=== PATIENT | female | born 2005 | race Caucasian/White ===

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

== ENCOUNTER 2024-12-02 10:42 | Outpatient (REF) | payer MEDICAID, OTHER, SELFPAY ==
--- OUTSIDE RECORDS SUMMARY | 2024-12-02 11:23 | XMS_ITS | Encounter Summary ---
Author Organization [employer] Address [address] [facility] [address] [place] [address] Care Team Providers Care Glass Maker Name Role Phone Velvet Sharp MD Primary Care Provider [phone] Reason for Visit * Reason Onset Date Comments Appointment Request 03/27/2023 Encounter Details Date Type Department Care Team ([facility] st Contact Info) Description 03/27/2023 Telephone [facility] [address] [place] [address] Velvet Sharp MD [address] [place] [phone] Appointment Request Social History Tobacco Use Types Packs/Day Years Used Date Smoking Tobacco: Never Smokeless Tobacco: Never Alcohol Use Standard Drinks/Week Comments Never 0 (1 standard drink = 0.6 oz pur e alcohol) Comments Unknown Sex and Gender Information Value Date Recorded Sex Assigned at Female 09/01/2022 10:35 AM EDT Legal Sex Female 10:35 AM EDT Gender Identity Female 09/01/2022 10:35 AM EDT Sexual Orientation Don't know 01/21/2024 12 :10 PM EDT documented as of this encounter Miscellaneous Notes * Telephone Encounter - Rasheeda Daigle RN - 03/31/2023 4:09 PM EDT Second attempt for triage. Same message of this number is not accepting calls. Unable to LVM. Unable to send text message via [employer] gwendolyn. * Telephone Encounter - Rasheeda Daigle RN - 03/31/2023 3:38 PM EDT Call returned to patient for triage x 2. No answer , Message states the person is not accepting call at this time. Will attempt call a third time. * Telephone Encounter - Kevon Carrion - 03/27/2023 9:12 AM EDT Tc from pt requesting to R/S 03/27/23 ( discuss BC pill and pssible allergic reaction ) Please contact pt at [phone] documented in this encounter Plan of Treatment Upcoming Encounters Date Type Department Care Team ([facility] st Contact Info) Description 12/06/2024 10:00 AM EST Office Visit [facility] [address] [place] [address] Nimco Aguilar [address] [place] [address] documented as of this encounter Visit Diagnoses Not on filedocumented in this encounter Care Teams Glass Maker Relationship Specialty Start Date End Date Velvet Sharp MD [address] [place] [address] PCP - General Family Medicine 02/02/19 documented as of this encounter
--- OUTSIDE RECORDS SUMMARY | 2024-12-02 11:23 | XMS_ITS | Encounter Summary ---
Author Organization [employer] Address [address] [facility] [address] [place] [address] Care Team Providers Care Lube Worker Name Role Phone Velvet Sharp MD Primary Care Provider [phone] Reason for Visit * Reason Onset Date Comments Results 07/16/2023 Encounter Details Date Type Department Care Team ([facility] st Contact Info) Description 07/16/2023 Telephone [facility] [address] [place] [address] Velvet Sharp MD [address] [place] [phone] Results Social History Tobacco Use Types Packs/Day Years Used Date Smoking Tobacco: Never Passive Smoke Exposure: Never Smokeless Tobacco: Never Alcohol Use Standard Drinks/Week Comments Never 0 (1 standard drink = 0.6 oz pur e alcohol) Comments No Sex and Gender Information Value Date Recorded Sex Assigned at Female 09/01/2022 10:35 AM EDT Legal Sex Female 10:35 AM EDT Gender Identity Female 09/01/2022 10:35 AM EDT Sexual Orientation Don't know 01/21/2024 12 :10 PM EDT documented as of this encounter Miscellaneous Notes * Telephone Encounter - Deni Woods RN - 07/17/2023 1:25 PM EDT Please see messages below and f/u with records request: US results. Thank you. * Telephone Encounter - Deni Woods RN - 07/17/2023 1:25 PM EDT Call placed to pt and pt informed of below. Pt verbalizes understanding and agrees. * Telephone Encounter - Dinorah Ocampo CNM - 07/17/2023 8:19 AM EDT Noted. Provera sent in. Please try to get ultrasound records. Report if no bleeding by 7th day after taking last pill. Thanks! * Telephone Encounter - Deni Woods RN - 07/16/2023 3:50 PM EDT Call to pt. Requesting review of most recent lab results. RN advised, per Dinorah, Please let Michael know her bloodwork showed slight elevation of triglycerides and testosterone, everything else normal. She has a known dx of PCOS, which explains testosterone. No tx needed for triglycerides otherthan cutting back on processed foods. Has she gotten a period yet? If not, I will prescribe medication to bring it on. We'll be in touch with ultrasound results when available. Thanks! Pt verbalizes understanding of results. Per pt, has not had her period in about a year. RN advised will forward to Dinorah as plan is to prescribe Rx. RN checked [place] [facility] [place] [facility]No results. Per pt, US done in [place]. Report not in system. Advised will f/u with Dinorah and return call to pt with plan. Pt agrees. * Telephone Encounter - Quita Marshall - 07/16/2023 3:34 PM EDT Tc from patient requesting lab test results. documented in this encounter Plan of Treatment Upcoming Encounters Date Type Department Care Team (Late st Contact Info) Description 12/06/2024 10:00 AM EST Office Visit [facility] [address] [place] [address] Rikki Aguilarlucio [address] [place] [address] documented as of this encounter Visit Diagnoses Not on filedocumented in this encounter Care Teams Lube Worker Relationship Specialty Start Date End Date Velvet Sharp MD [address] [place] [address] PCP - General Family Medicine 02/02/19 documented as of this encounter
--- OUTSIDE RECORDS SUMMARY | 2024-12-02 11:23 | XMS_ITS | Encounter Summary ---
Author Organization [employer] [facility] Address [address] [facility] [address] [address] Care Team Providers Care Space Technologist Name Role Phone Velvet Sharp MD Primary Care Provider [phone] Reason for Visit * Reason Onset Date Comments Appointment 06/26/2023 Encounter Details Date Type Department Care Team (Late st Contact Info) Description 06/26/2023 Telephone [facility] [address] [place] [address] Clyde Robles Appointment Social History Tobacco Use Types Packs/Day Years [...] encounter Miscellaneous Notes * Telephone Encounter - Yadira Mccord - 06/26/2023 9:27 AM EDT Patient on waiting list since March for cleaning and exam but status of wait list states pending. Joseph listed for Fan. Patient would like to be scheduled DR documented in this encounter Plan of Treatment Upcoming Encounters Date Type Department Care Team (Late st Contact Info) Description 12/06/2024 10:00 AM EST Office Visit [facility] [address] [place] [address] Rikki Aguilarlucio [address] [place] [address] documented as of this encounter Visit Diagnoses Not on filedocumented in this encounter Care Teams Space Technologist Relationship Specialty Start Date End Date Velvet Sharp MD [address] [place] [address] PCP - General Family Medicine 02/02/19 documented as of this encounter
--- OUTSIDE RECORDS SUMMARY | 2024-12-02 11:24 | XMS_ITS | Clinical Summary ---
Author Organization [employer] Address [address] [facility] [address] [place] [address] Care Team Providers Care Produce Specialist Name Role Phone Velvet Sharp MD Primary Care Provider [phone] Allergies No known active allergies Medications magnesium oxide (Mag-Ox) 400 MG tablet Take 1 tablet by mouth in the morning. 07/31/20 22 Active magnesium oxide (Mag-Ox) 400 MG tablet Take 1 tablet by mouth in the morning. 07/31/20 22 Active ibuprofen 600 MG tablet take 1 tablet by oral route 3 times every day with food 09/15/20 22 Active clotrimazole (Lotrimin) 1 % cream Apply topically 2 times daily. 28 g 1 12/02/19 25 Active clotrimazole (Lotrimin) 1 % cream 1 applic by topical route 2 times per day 07/24/20 22 025 Discontinued(Re order (will not trigger notification to Pharmacy)) medroxyPROGEST ERone (Provera) 5 MG tablet Take 1 tablet (5 mg) by mouth in the morning for 7 days. Report if no menses by 7th day after last pill 7 tablet 07/17/20 23 025 Discontinued(Th erapy completed) ibuprofen 600 MG tablet TAKE ONE TABLET THREE TIMES DAILY WITH FOOD 90 tablet 1 09/03/20 23 025 Discontinued( erapy completed) ketoconazole (NIZOral) 2 % shampoo wash hair and rinse every 2 days 100 mL 11 09/03/20 23 025 Discontinued( erapy completed) Active Problems Problem Noted Date Diagnosed Date Gastroenteritis 01/21/2024 Assessment & Plan (01/22/2024 2:09 AM EDT): Ordered laboratories since diarrhea has not improved and I prescribed Zofran for nausea. Labs: Salmonella, Ova and parasites History of PCOS 04/21/2023 Acute ear infection, right 04/21/2023 Encounters Date Type Department Care Team Description 12/02/2024 10:00 AM EST Office Visit [facility] PED[facility] [address] [place] [address] Velvet Sharp MD Encounter for immunization (Primary Dx); Annual physical exam; Rapid weight gain; Dietary counseling; Exercise counseling; History of PCOS; Anxiety 12/02/2024 Travel 11/25/2024 Patient Outreach [facility] [address] [place] [address] Velvet Sharp MD Pre-visit Planning ([facility] unable to reach [facility]) 09/06/2024 9:00 AM EST Office Visit [facility] ADULT DENTAL [address] [place] [address] Francoise Cotto Dental calculus (Primary Dx) from Last 3 Months Immunizations Name Administration Dates Next Due BCG 2004 DTaP 01/03/2010, 6,03/04/2005,09/30,2004 HPV 9-Valent 02/02/2019,07/21/2017 Hep A, ped/adol, 2 dose 06/20/2021,07/21/2017 Hep B, Adolescent or Pediatric 03/04/2005,2003 Hep B, Unspecified 2004,2004 HiB, unspecified 03/04/2005,2004 Hib (PRP-T) 2004 IPV 12/08/2018, 6,03/04/2005,09/30,2004,2004 Influenza injectable quadriv alent IIV4 with preservative 12/08/2018 Influenza injectable quadriv alent preservative free 09/03/2023,07/31/2022,12/26/2021,09/06,08/11/2019 Influenza, seasonal, injecta ble, preservative free 12/02/2024 MMR 09/15/2008,09/12/2005 Meningococcal MCV4P ACYW-135 06/20/2021,07/21/20 17 Pfizer Covid-19 Vaccine 12+ 12/02/2024,,05/07/2021 TD (adult), 2 Lf tetanus tox oid, preservative free, adsorbed 06/16/2017 Tdap 07/21/2017 Varicella 12/08/2018,07/21/2017 Social History Tobacco Use Types Packs/Day Years Used Date Smoking Tobacco: Never Passive Smoke Exposure: Never Smokeless Tobacco: Never Tobacco Cessation:Counseling Given: Not Answered Alcohol Use Standard Drinks/Week Comments Never 0 (1 standard drink = 0.6 oz pur e alcohol) Depression Answer Date Recorded Patient Health Questionnaire-9 Score 5 12/02/2024 Patient Health Questionnaire-9 Score 5 12/02/2024 Last PHQ-9: Questionnaire Data Not on file 0 12/02/2024 Housing Stability Answer Date Recorded What is your housing situation today? I have amilcar davidson 12/02/[address] you li ve. Do you have problems with any of the following? None of the above 12/02/2024 Food Insecurity Answer Date Recorded Within the past 12 months, y ou worried that your food would run out before you got money to buy more: Never True 12/02/2024 Within the past 12 months,th e food you bought just didn't last and you didn't have enough money to get more: Never True Transportation Answer Date Recorded In the past 12 months, has l ack of transportation kept you from medical appts, meetings, work or from getting things needed for daily living? No 12/02/2024 Utilities Answer Date Recorded In the past 12 months, has t he electric, gas, oil or water company threatened to shut off services in your home? No 12/02/2024 Depression Answer Date Recorded Patient Health Questionnaire-2 Score 2 12/02/2024 Internet Access Answer Date Recorded Internet Access Q1 Yes 12/02/2024 Internet Access Q2 Not on file 12/02/2024 Comments No Sex and Gender Information Value Date Recorded Sex Assigned at Female 09/01/2022 10:35 AM EDT Legal Sex Female 10:35 AM EDT Gender Identity Female 09/01/2022 10:35 AM EDT Sexual Orientation Don't know 01/21/2024 12 :10 PM EDT Last Filed Vital Signs Vital Sign Reading Time Taken Comments Blood Pressure 127/84 12/02/2024 10:01 AM EST Pulse 87 12/02/2024 10:01 AM EST Temperature 36.9 ??C (98.4 ??F) 12/02/2024 10:[address] Respiratory Rate 20 12/02/2024 10:01 AM EST Oxygen Saturation 98% 12/02/2024 10:01 AM EST Inhaled Oxygen Concentration - - Weight 85.3 kg (188 lb) 12/02/2024 10:01 AM EST Height 165.7 cm (5' 5.25 ) 12/02/2024 10:[address] Body Mass Index 31.05 12/02/2024 10:01 AM EST Plan of Treatment Upcoming Encounters Date Type Department Care Team (Late st Contact Info) Description 12/06/2024 10:00 AM EST Office Visit [facility] ADULT DENTAL [address] [place] [address] Rikki Aguilarpreet [address] [place] [address] Health Maintenance Due Date Last Done Comments Chlamydia and Gonorrhea Screening 2004 Dental X-Ray: Full Mouth 2004 HIV Screening 2004 Family Planning (PISQ) 2019 Hepatitis C Screening 2022 Dental X-Ray: Bitewings 02/08/2025 02/08/2024, 10/14 Dental Oral Exam 03/07/2025 09/06/2024 Dental Prophylaxis 03/07/2025 09/06/2024, 0 02/08/2024, 10/14/2022 Alcohol/Substance Use Screening 12/02/2025 12/02/2024 Depression Screening 12/02/2025 12/02/2024, 12/02/19 25 SDOH Screening 12/02/2025 12/02/2024 Tobacco Screening 12/02/2025 12/02/2024 DTaP/Tdap/Td Vaccines (7 - Td or Tdap) 07/21/2027 07/21/2017, 06/16/2017, 01/03/2010, Additional history exists Zoster Vaccines (1 of 2) 2054 RSV Patients and Patients Aged 60 years or older (1 - 1-dose 75+ series) 2079 HIB Vaccines Aged Out 03/04/2005, 09/03, 2004 No longer eligible based on patient's age to complete this topic Hepatitis B Vaccines Completed 03/04/2005, 2004, 2004, Additional history exists IPV Vaccines Completed 12/08/2018, 07/04, 03/04/2005, Additional history exists HPV Vaccines Completed 02/02/2019, 07/21/2017 Hepatitis A Vaccines Completed 06/20/2021, 07/21/20 17 Meningococcal Vaccine Completed 06/20/2021, 017 COVID-19 Vaccine Completed 12/02/2024, , 05/07/2021 Influenza Vaccine Completed 12/02/2024, , 07/31/2022, Additional history exists Pneumococcal Vaccine: Pediatrics (0 to 5 Years) and At-Risk Patients (6 to 49) Years) Aged Out No longer eligible based on patient's age to complete this topic RSV under 20 months Aged Out No longe r eligible based on patient's age to complete this topic Rotavirus Vaccines Aged Out No longer eligible based on patient's age to complete this topic Procedures Procedure Name Priority Date/Time Associated Diagnosis Comments COMPREHENSIVE PERIODONTAL EVALUATION - NEW OR ESTABLISHED PATIENT Routine 09/06/2024 9:00 AM EST PERIODIC ORAL EVALUATION - ESTABLISHED PATIENT Routine 09/06/2024 9:00 AM EST ORAL HYGIENE INSTRUCTIONS Routine 2023 9:00 AM EST ADJUNCTIVE GENERAL SERVICES - PROFESSIONAL VISITS - CASE PRESENTATION, SUBSEQUENT TO DETAILED AND EXTENSIVE TREATMENT PLANNING Routine 09/06/2024 9:00 AM EST PROPHYLAXIS - ADULT Routine 09/06/2024 9 :00 AM EST BITEWINGS - 4 RADIOGRAPHIC IMAGES Routine 02/08/2024 3:00 PM EDT from Last 3 Months or Most Recently Relevant to Health Maintenance Insurance [place] [facility] AD[facility]ENT[facility] - HSN FULL (MEDICAID) Care Teams Produce Specialist Relationship Specialty Start Date End Date Velvet Sharp MD [address] [place] [id number] PCP - General Family Medicine 02/02/19
--- OUTSIDE RECORDS SUMMARY | 2024-12-02 11:24 | XMS_ITS | Encounter Summary ---
Author Organization [employer] Address [address] [facility] [address] [place] [address] Care Team Providers Care Commission Clerk Name Role Phone Velvet Sharp MD Primary Care Provider [phone] Reason for Referral * Consultation (Routine) - Authorized Specialty Diagnoses / Procedures Referred By Contac t Referred To Contact Behavioral Health Diagnoses Anxiety Velvet Sharp MD [address] [place] [address] Phone: tel: fax: Referral ID Status Reason Start Date Expiration Date Visits Requested Visits Authorized [id number] Authorized Specialty Services Required 12/02/2024 12/02/2025 1 1 Encounter Details Date Type Department Care Team ([facility] st Contact Info) Description 12/02/2024 10:00 AM EST Office Visit [facility] MED & PEDS [address] [place] [address] Velvet Sharp MD [address] [place] [address] Encounter for immunization (Primary Dx); Annual physical exam; Rapid weight gain; Dietary counseling; Exercise counseling; History of PCOS; Anxiety Social History Tobacco Use Types Packs/Day Years [...] PM EDT documented as of this encounter Last Filed Vital Signs Vital Sign Reading [...] Mass Index 31.05 12/02/2024 10:01 AM EST documented in this encounter Progress Notes * Velvet Sharp MD - 12/02/2024 10:00 AM EST Subjective Patient ID: Michael Sawant is a 19 y.o. female who presents for her PE visit. Michael is a healthy 19 y/o with PCOS here for her PE visit.Not seen in a while because she moved to [place], now back in [place]. 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 She has gained almost 20 pounds since her last visit in January 2024. Admits sometimes stress eats a lot of unhealthy snacks at night. Started going to gym with boyfriend recently and wants to lose some of the weight she has gained eating healthier. She does not have a therapist but would like to be referred as she is having anxiety. Denies high risk behaviors ,no tobacco alcohol or drug use. History provided by: Patient link trainer used: No Review of Systems Constitutional: Positive for unexpected weight change. Negative for activity change, chills and fever. Respiratory: Negative for cough, shortness of breath and wheezing. Cardiovascular: Negative for chest pain, palpitations and leg swelling. Gastrointestinal: Negative for abdominal pain and blood in stool. Endocrine: Negative for polydipsia and polyuria. Genitourinary: Negative for decreased urine volume, difficulty urinating, dysuria, hematuria and vaginal discharge. Musculoskeletal: Negative for arthralgias and gait problem. Skin: Negative for color change and rash. Neurological: Negative for dizziness and headaches. Hematological: Negative for adenopathy. Psychiatric/Behavioral: Negative for dysphoric mood, hallucinations, sleep disturbance and suicidalideas. The patient is nervous/anxious. Objective BP 127/84 (BP Location: Left arm, Patient Position: Sitting, BP Cuff Size: Adult) Pulse87 Temp 98.4 ??F (36.9 ??C) (Oral) Resp 20 Ht 5' 5.25 (1.657 m) Wt 188 lb (85.3 kg) LMP 11/04/2024 (Exact Date) SpO2 98% BMI 31.05 kg/m?? Physical Exam Vitals reviewed. Constitutional: General: She is not in acute distress. Appearance: Normal appearance. She is not ill-appearing. HENT: Head: Normocephalic. Right Ear: Tympanic membrane and ear canal normal. Left Ear: Tympanic membrane and ear canal normal. Nose: Nose normal. Mouth/Throat: Mouth: Mucous membranes are moist. Pharynx: No oropharyngeal exudate or posterior oropharyngeal erythema. Eyes: Extraocular Movements: Extraocular movements intact. Conjunctiva/sclera: Conjunctivae normal. Pupils: Pupils are equal, round, and reactive to light. Cardiovascular: Rate and Rhythm: Normal rate and regular rhythm. Pulses: Normal pulses. Heart sounds: Normal heart sounds. Pulmonary: Effort: Pulmonary effort is normal. No respiratory distress. Breath sounds: Normal breath sounds. Abdominal: Palpations: Abdomen is soft. Musculoskeletal: General: Normal range of motion. Cervical back: Normal range of motion. Skin: General: Skin is warm. Capillary Refill: Capillary refill takes less than 2 seconds. Comments: Has acanthosis nigricans on neck of neck Neurological: General: No focal deficit present. Mental Status: She is alert and oriented to person, place, and time. Psychiatric: Mood and Affect: Mood normal. Behavior: Behavior normal. Thought Content: Thought content normal. Judgment: Judgment normal. Assessment/Plan Diagnoses and all orders for this visit: Encounter for immunization Comments: She received flu and COVID shots today without complication. Orders: - COVID-19 VACCINE (Pfizer) [id number] 12 yrs + - FLU VACCINE TRIVALENT (Fluarix) 6 mo + - Hepatitis C Antibody with Reflex to HCV, RNA, Quantitative, Real-Time PCR; Future - HIV-1/2 Antigen and Antibodies, Fourth Generation, with Reflexes; Future - TSH W/Reflex to FT4; Future - Hepatic Function Panel; Future - Chlamydia/N. Gonorrhoeae RNA, TMA, Urogenitial - CBC auto differential; Future - Basic Metabolic Panel; Future - Syphilis Screen; Future Annual physical exam Comments: Patient had her annual physical today. No abnormalities on exam today. Needs Pap smear in the summer. STI screening done today. Call with results. Orders: - Hepatitis C Antibody with Reflex to HCV, RNA, Quantitative, Real-Time PCR; Future - HIV-1/2 Antigen and Antibodies, Fourth Generation, with Reflexes; Future - TSH W/Reflex to FT4; Future - Hepatic Function Panel; Future - Chlamydia/N. Gonorrhoeae RNA, TMA, Urogenitial - CBC auto differential; Future - Basic Metabolic Panel; Future Rapid weight gain Comments: Check labs today, add exercise activity apart from what she does at work. Avoid unhealthy snacks athome and eating out often. Orders: - Insulin; Future - Hemoglobin A1c; Future Dietary counseling Exercise counseling History of PCOS Comments: Recheck labs today. Interested in Nexplanon for control. Scheduled with client leader for Nexplanoninsertion advised to not miss. Partner is in [place], will use condoms in meantime. Anxiety Comments: Patient will be referred to behavioral health for intake and referral for outpatient therapy. No concerning symptoms. Follow-up with me as scheduled. Orders: - Referral to Behavioral Health; Future Other orders - clotrimazole (Lotrimin) 1 % cream; Apply topically 2 times daily. documented in this encounter Plan of Treatment Upcoming Encounters Date Type Department Care Team (Late st Contact Info) Description 12/06/2024 10:00 AM EST Office Visit [facility] ADULT DENTAL [address] [place] [address] Enrrique Aguilaranpreet [address] [place] [address] Scheduled Orders Name Type Priority Associated Diagnoses Orde r Schedule Hepatitis C Antibody with Reflex to HCV, RNA, Quantitative, Real-Time PCR Lab Routine Encounter for immunization Annual physical exam Expected: 12/02/2024, Expires: 12/02/2025 HIV-1/2 Antigen and Antibodies, Fourth Generation, with Reflexes Lab Routine Encounter for immunization Annual physical exam Expected: 12/02/2024 (Approximate), Expires: 12/02/2025 TSH W/Reflex to FT4 Lab Routine Encounter for immunization Annual physical exam Expected: 12/02/2024 (Approximate), Expires: 12/02/2025 Hepatic Function Panel Lab Routine Encounter for immunization Annual physical exam Expected: 12/02/2024 (Approximate), Expires: 12/02/2025 Chlamydia/N. Gonorrhoeae RNA, TMA, Urogenitial Microbiology Routine Encounter for immunization Annual physical exam Ordered: 12/02/2024 CBC auto differential Lab Routine Encounter for immunization Annual physical exam Expected: 12/02/2024 (Approximate), Expires: 12/02/2025 Basic Metabolic Panel Lab Routine Encounter for immunization Annual physical exam Expected: 12/02/2024 (Approximate), Expires: 12/02/2025 Insulin Lab Routine Rapid weight gain Expected: 12/02/2024 (Approximate), Expires: 12/02/2025 Hemoglobin A1c Lab Routine Rapid weight gain Expected: 12/02/2024 (Approximate), Expires: 12/02/2025 Syphilis Screen Lab Routine Encounter for immunization Expected: 12/02/2024, Expires: 12/02/2025 Scheduled Referrals Name Type Priority Associated Diagnoses Order Schedule Referral to Behavioral Health Outpatient Referral Routine Anxiety Expected: 12/02/2024 (Approximate), Expires: 12/02/2025 documented as of this encounter Visit Diagnoses Diagnosis Encounter for immunization- Primary Annual physical exam Routine general medical examination at a health care facility Rapid weight gain Dietary counseling Dietary surveillance and counseling Exercise counseling History of PCOS Anxiety Anxiety state, unspecified documented in this encounter Additional Health Concerns Assessment Noted Time PHQ-9 Depression Total Score: 5 12/02/19 25 10:32 AM EST documented as of this encounter Care Teams Commission Clerk Relationship Specialty Start Date End Date Velvet Sharp MD [address] [place] [id number] PCP - General Family Medicine 02/02/19 documented as of this encounter
--- OUTSIDE RECORDS SUMMARY | 2024-12-02 11:24 | XMS_ITS | Encounter Summary ---
Author Organization [employer] Address [address] [facility] [address] [place] [address] Care Team Providers Care Cardiology Nurse Practitioner Name Role Phone Velvet Sharp MD Primary Care Provider [phone] Reason for Visit * Reason Onset Date Comments Appointment Request 06/26/2023 Encounter Details Date Type Department Care Team ([facility] st Contact Info) Description 06/26/2023 Telephone [facility] MEDICINE [address] [place] [address] Velvet Sharp MD [address] [place] [phone] Appointment Request Social History Tobacco Use Types Packs/Day Years Used Date Smoking Tobacco: Never Passive Smoke Exposure: Never Smokeless Tobacco: Never Alcohol Use Standard Drinks/Week Comments Never 0 (1 standard drink = 0.6 oz pur e alcohol) Housing Stability Answer Date Recorded What is your housing situation today? I have amilcar davidson 08/28/[address] you li ve. Do you have problems with any of the following? None of the above 08/28/2023 Food Insecurity Answer Date Recorded Within the past 12 months, y ou worried that your food would run out before you got money to buy more: Never True 08/28/2023 Within the past 12 months,th e food you bought just didn't last and you didn't have enough money to get more: Never True Transportation Answer Date Recorded In the past 12 months, has l ack of transportation kept you from medical appts, meetings, work or from getting things needed for daily living? No 08/28/2023 Utilities Answer Date Recorded In the past 12 months, has t he electric, gas, oil or water company threatened to shut off services in your home? No 08/28/2023 Comments No Sex and Gender Information Value Date Recorded Sex Assigned at Female 09/01/2022 10:35 AM EDT Legal Sex Female 10:35 AM EDT Gender Identity Female 09/01/2022 10:35 AM EDT Sexual Orientation Don't know 01/21/2024 12 :10 PM EDT documented as of this encounter Miscellaneous Notes * Telephone Encounter - Preeti Vaca - 06/26/2023 9:09 AM EDT Tc from pt requesting stating they received a letter from office to schedule PE appt however writerdoes not see any recent letters or RECALL. Please contact for clarification at [phone] documented in this encounter Plan of Treatment Upcoming Encounters Date Type Department Care Team (Late st Contact Info) Description 12/06/2024 10:00 AM EST Office Visit [facility] [address] [place] [address] AguilarEnrrique rubalcavabertha [address] [place] [address] documented as of this encounter Visit Diagnoses Not on filedocumented in this encounter Care Teams Cardiology Nurse Practitioner Relationship Specialty Start Date End Date Velvet Sharp MD [address] [place] [address] PCP - General Family Medicine 02/02/19 documented as of this encounter
--- OUTSIDE RECORDS SUMMARY | 2024-12-02 11:24 | XMS_ITS | Encounter Summary ---
Author Organization [employer] Address [address] [facility] [address], [place] [address] Care Team Providers Care Extruder Operator Helper Name Role Phone Velvet Sharp MD Primary Care Provider [phone] Encounter Details Date Type Department Care Team (Late Contact Info) Description 07/21/2023 Orders Only [facility] MED & PED[facility] [address] [place] [address] Nisa Juarez LPN Social History Tobacco Use Types Packs/Day Years [...] PM EDT documented as of this encounter Plan of Treatment Upcoming Encounters Date Type Department Care Team (Late Contact Info) Description 12/06/2024 10:00 AM EST Office Visit [facility] ADULT DENTAL [address] [place] [address] Nimco Aguilar [address] [place] [address] documented as of this encounter Visit Diagnoses Not on filedocumented in this encounter Care Teams Extruder Operator Helper Relationship Specialty Start Date End Date Velvet Sharp MD [address] [place] [address] PCP - General Family Medicine 02/02/19 documented as of this encounter
--- OUTSIDE RECORDS SUMMARY | 2024-12-02 11:24 | XMS_ITS | Encounter Summary ---
Author Organization [employer] Address [address] [facility] [address] [address] Care Team Providers Care Financial Sales Consultant Name Role Phone Velvet Sharp MD Primary Care Provider [phone] Reason for Visit * Reason Comments Pre-visit Planning SDOH unable to reach LVM Encounter Details Date Type Department Care Team ([facility] st Contact Info) Description 11/25/2024 Patient Outreach [facility] MED & PEDS [address] [place], [place] [id number] Velvet Sharp MD [address] [place] [address] Pre-visit Planning (SDOH unable to reach LVM) Social History Tobacco Use Types Packs/Day Years [...] PM EDT documented as of this encounter Progress Notes * Sona Carrion - 11/25/2024 1:21 PM EST CC Sona Delacruz placed outbound call to patient to complete pre-visit planning. No answer at this time. Patient name and were not confirmed. CC left voicemail requesting return call. Direct contactinformation provided. documented in this encounter Plan of Treatment Upcoming Encounters Date Type Department Care Team (Late st Contact Info) Description 12/06/2024 10:00 AM EST Office Visit [facility] ADULT DENTAL [address] [place] [address] Nimco Aguilar [address] [place] [address] documented as of this encounter Visit Diagnoses Not on filedocumented in this encounter Care Teams Financial Sales Consultant Relationship Specialty Start Date End Date Velvet Sharp MD [address] [place] [address] PCP - General Family Medicine 02/02/19 documented as of this encounter
--- OUTSIDE RECORDS SUMMARY | 2024-12-02 11:24 | XMS_ITS | Encounter Summary ---
Author Organization [employer] Address [address] [facility] [address] [place] [address] Care Team Providers Care Flat Breakdown Processor Name Role Phone Velvet Sharp MD Primary Care Provider [phone] Encounter Details Date Type Department Care Team (Latest Contact Info) Description 12/02/2024 Travel Social History Tobacco Use Types Packs/Day Years [...] Description 12/06/2024 10:00 AM EST Office Visit [facility] ADULT DENTAL [address] [place] [address] Nimco Aguilar [address] [place] [address] documented as of this encounter Visit Diagnoses Not on filedocumented in this encounter Additional Health Concerns Assessment Noted Time PHQ-9 Depression Total Score: 5 12/02/19 25 10:32 AM EST documented as of this encounter Care Teams Flat Breakdown Processor Relationship Specialty Start Date End Date Velvet Sharp MD [address] [place] [address] PCP - General Family Medicine 02/02/19 documented as of this encounter
[2024-12-02 11:48] LABS: MANUAL DIFF FLAG NO
[2024-12-02 11:56] LABS: Basophils Percent Auto 0.5 % (0-2); Hematocrit 43.3 % (37.0-47.0); Hemoglobin 13.9 g/dl (12.0-16.0); Imm Gran Abs Auto 0.04 X10*3/uL (0.00-0.03); Imm Gran Pct Auto 0.5 % (0.0-0.4); Lymphocytes Absolute Auto 2.3 X10*3/uL (1.2-4.9); Lymphocytes Percent Auto 28.9 % (20-40); Mean Corpuscular HGB Conc 32.1 g/dl (31.0-35.0); Mean Corpuscular Hemoglobin 30.4 pg (27.0-33.0); Mean Corpuscular Volume 94.7 fL (80.0-98.0); Mean Platelet Volume 10.7 fL (9.4-12.3); Monocytes Absolute Auto 0.6 X10*3/uL (0.1-1.2); Monocytes Percent Auto 7.5 % (2-11); Neutrophils Percent Auto 62.6 % (45-73); Platelet Count 383 X10*3/uL (160-400); Red Blood Count 4.57 X10*6/uL (4.20-5.50); Red Cell Distribution Width 13.3 % (11.0-16.0)
[2024-12-02 12:03] LABS: Estimated Average Glucose 100 mg/dL; Hemoglobin A1C 122.2741 umol/L; Hemoglobin A1c % 5.1 % (<6.0); Total Hemoglobin (HGBA1C) 3760.6694 umol/L
[2024-12-02 12:55] LABS: HIV AB/AG Nonreactive (Nonreactive); HIV Num 1 0.05 S/CO (0.00-0.99); ~HepC Num1 0.07 S/CO (0.00-0.79); ~Hepatitis C Antibody Nonreactive (Nonreactive)
[2024-12-02 12:57] LABS: Syphilis Screen Nonreactive (Nonreactive)
[2024-12-02 13:15] LABS: Alanine Aminotransferase 41 U/L (0-31); Albumin Level 4.5 g/dL (3.5-5.0); Alkaline Phosphatase 73 U/L (39-117); Anion Gap 14 (12-20); Aspartate Amino Transferase 24 U/L (5-31); Bilirubin Direct 0.1 mg/dL (0.0-0.5); Bilirubin Total 0.4 mg/dL (0.0-1.0); Blood Urea Nitrogen 12 mg/dL (9-16); Carbon Dioxide 26 mmol/L (22-29); Chloride 106 mmol/L (96-108); Estimated Glomerular Filt Rate > 60; Glucose Random 84 mg/dL (60-115); Potassium 4.4 mmol/L (3.3-5.1); Sodium 142 mmol/L (135-145); Total Protein 8.1 g/dL (6.5-8.0)
[2024-12-02 13:25] LABS: Insulin 63 uU/mL (2-29); TSH reflex Free T4 1.56 uIU/mL (0.32-4.0)
[2024-12-02 14:37] LABS: CT PCR NOT DETECTED (Not Detect.); NG PCR NOT DETECTED (Not Detect.)
== END 2024-12-02 10:43 | disposition home or self-care (01) ==
LOC: HO.CHCLDS 10:42
PROVIDERS: Visit Provider Pediatrics
DX: Z00.00 Encounter for general adult medical examination without abnormal findings (principal); R63.5 Abnormal weight gain; Z23 Encounter for immunization
CPT/HCPCS: 36415; 80048; 80076; 83036; 83525; 84443; 85025; 86780; 86803; 87389; 87491; 87591

== ENCOUNTER 2025-07-29 13:45 | Emergency (ER) | payer MEDICAID, OTHER, SELFPAY ==
--- NOTE | 2025-07-29 13:47 | ECG_ITS ---
Test Reason : chest pain Blood Pressure : */* mmHG Vent. Rate : 88 BPM Atrial Rate : 88 BPM P-R Int : 128 ms QRS Dur : 72 ms QT Int : 340 ms P-R-T Axes : 22 16 -1 degrees QTcB Int : 411 ms Normal sinus rhythm Minimal voltage criteria for LVH, may be normal variant ( R in aVL ) Cannot rule out Anterior infarct , age undetermined Abnormal ECG When compared with ECG of 21-Aug-2021 21:57, Nonspecific T wave abnormality, worse in Anterior leads Referred By: Generic ED Physician Electronically Signed By: Adryan Hampton
[2025-07-29 13:56] VITALS: BP 130/77; PULSE 85; RESP 16; TEMP 36.2; O2SAT 98; BMI 25.8
--- NOTE | 2025-07-29 13:57 | ED.GENADULT ---
HPI - General Adult General Chief complaint: Upper Respiratory Symptoms Stated complaint: headache fever chest pain Time Seen by Provider: 07/29/25 15:14 Source: patient Mode of arrival: ambulatory Limitations: no limitations History of Present Illness ED Provider: Reina Valentin APRN HPI narrative: 20-year-old female with no known medical history presents the ER with complaints of sore throat, headaches, body aches, chest discomfort with coughing, nonproductive cough, subjective fevers and chills for 3 days. Patient denies any sick contacts. No recent travel. She denies any difficulty breathing, difficulty swallowing, shortness of breath, neck pain, neck stiffness, vomiting, diarrhea, abdominal pain. Related Data Previous Rx's ?Medication ?Instructions ?Recorded amoxicillin 500 mg-potassium 1 tab PO BID #14 tabs 04/04/23 clavulanate 125 mg tablet (Augmentin) ketorolac 10 mg tablet 10 mg PO TID PRN pain #10 tabs 04/04/23 acetaminophen 325 mg tablet 650 mg (2 x 325 mg) PO Q4H PRN 07/29/25 (Tylenol) fever or pain #30 tabs ibuprofen 600 mg tablet 600 mg PO Q8H PRN fever or pain 07/29/25 #20 tabs Allergies Allergy/AdvReac Type Severity Reaction Status Date / Time No Known Allergies (No Known Allergy Verified 07/29/25 13:58 Allergies*) Review of Systems Review of Systems: Yes all other systems are reviewed and are negative Constitutional: Constitutional: Reports no additional constitutional complaints, Reports body ache(s), Reports chills, Reports fatigue, Reports fever(s), Reports headache(s) and Denies weakness Eyes: Eyes: Reports no additional eye complaints and Denies change in vision ENT: Reports system reviewed and no additional complaints, except as documented, Denies dizziness, Reports headache(s), Denies nasal congestion, Denies nasal discharge, Denies neck pain and Reports sore throat Cardiovascular: Cardiovascular: Reports no additional cardiovascular complaints, Reports chest pain, Denies leg edema and Denies dyspnea Respiratory: Respiratory: Reports no additional respiratory complaints, Reports cough and Denies dyspnea Gastrointestinal: Gastrointestinal: Reports no additional gastrointestinal complaints, Denies abdominal pain, Denies diarrhea, Denies nausea and Denies vomiting Genitourinary: Genitourinary: Reports no additional female genitourinary complaints and Denies urinary incontinence Musculoskeletal: Musculoskeletal: Reports no additional musculoskeletal complaints, Denies back pain, Denies arthralgias, Denies joint swelling, Denies neck pain, Denies numbness and Denies tingling Integumentary/Breasts: Skin/Breast: Reports system reviewed and no additional complaints, except as docu and Denies rash Neurologic: Reports system reviewed and no additional complaints, except as documented, Denies Abnormal speech present, Denies dizziness, Reports headache(s), Denies numbness, Denies tingling and Denies weakness Endocrine: Endocrine: Reports fatigue [facility] Past Medical History Attestation statement: The following information was validated with the patient. Source: old records reviewed and nursing notes reviewed Medical History Asthma Social History Social History Alcohol intake: never Patient Tobacco Use Status: Never used Tobacco Advance Directives: No Advance Directives Information Provided: No Physical Exam ED Vital Signs: Vital Signs - 24 hr 07/29/25 13:56 07/29/25 15:28 Temperature 97.2 F Pulse Rate 85 Respiratory Rate 16 Blood Pressure 130/77 Pulse Oximetry 98 97 Oxygen Delivery Method Room Air Room Air BMI result Body Mass Index 25.8 Const General: cooperative, healthy appearing, comfortable and no acute distress Orientation/consciousness: patient oriented x3 Limitations: no limitations HENMT Head: Yes normal to inspection Ears: hearing grossly normal bilaterally and TM's normal bilaterally General nose exam: Normal external nose present Face and sinus: Yes normal facial exam Mouth: Normal oral and palatal mucosa present Throat: Yes posterior oropharynx normal, Yes tonsils normal and Yes uvula midline Eyes General: appearance normal, both eyes and all related structures Pupils: Equal, round and reactive pupils present Neck Neck: Yes normal visual inspection, Yes full ROM, Yes no lymphadenopathy and Yes no meningeal signs Chest Chest palpation & inspection: normal inspection of the chest Resp Effort & Inspection: normal respiratory effort Auscultation: clear to auscultation bilaterally Cardio Rate: regular rate Rhythm: regular rhythm Peripheral pulses: Peripheral pulses 2+ throughout GI Inspection: Yes normal to inspection Palpation (GI): Soft to palpation and nontender Auscultation: normal bowel sounds Back/Spine/Pelvis Thoracic/Lumbar Spine: thoracic and lumbar spine normal to inspection Skin General skin exam: no rashes or lesions noted Neuro General: patient oriented x3, no meningeal signs, no focal motor deficits and normal sensation to monofilament Cranial nerves: Yes Equal, round and reactive pupils present Cognition (Neuro): normal cognition Speech: No Abnormal speech present Gait exam (Neuro): Normal gait present Motor exam (neuro): 5/5 motor strength present throughout Extrem General: Yes normal to inspection, Yes no calf tenderness and Yes normal gait Course Course Course Narrative: This is a rapid medical exam performed by Rajeev Can NP: Additional HPI, ROS, PE not included below will be deferred to primary provider. Patient is a 20y/o F presenting with c/o headache, sore throat, fatigue, chest pain for a few days. Has been around others with similar sxs. Plan: strep and viral swabs Reevaluation(s) Reevaluation #1: Viral testing is negative. EKG is nonischemic. Likely viral syndrome. Recommend supportive measures at home. Reviewed worrisome signs and symptoms of when to return to the emergency room. Comfortable plan for discharge home. Medical Decision Making Medical Decision Making [facility] Narrative: 20-year-old female with no known medical history presents the ER with complaints of sore throat, headaches, body aches, chest discomfort with coughing, nonproductive cough, subjective fevers and chills for 3 days. Patient denies any sick contacts. No recent travel. She denies any difficulty breathing, difficulty swallowing, shortness of breath, neck pain, neck stiffness, vomiting, diarrhea, abdominal pain. Exam is benign Vitals are stable Will send viral testing Reviewed EKG from triage Differential Diagnosis Differential Diagnoses: The differential diagnosis associated with the presentation includes Viral syndrome Admission/Observation Consideration of admission/observation: Escalation of care including admission/observation considered Lab Data [facility] Lab Attestation statement: I reviewed the patient's lab results. Labs: Lab Results 07/29/25 Range/Units 14:07 COVID-19 (ANGELIQUE) Negative (Negative) COVID-19 Clin Com See Note Influenza Type A (GUILLAUME) Negative (Negative) Influenza Type B (GUILLAUME) Negative (Negative) Influenza A & B Note See Note S. pyogenes GrpA GUILLAUME Negative (Negative) Independent Interpretation I performed an independent interpretation of an: EKG Interpretation: I independently viewed the EKG which shows normal sinus rhythm Independent Historian Clinical information obtained from an independent historian. History obtained from or confirmed by: Friend Discharge Plan Discharge Clinical Impression: Viral infection Patient Disposition: Home, Self-Care Instructions: Viral Syndrome (ED) Additional Instructions: Testing for flu, COVID and strep are negative Your EKG is normal Take Motrin or Tylenol for pain as needed Increase fluids Rest at home Prescriptions: New ibuprofen 600 mg tablet 600 mg PO Q8H PRN (Reason: fever or pain) Qty: 20 0RF acetaminophen [Tylenol] 325 mg tablet 650 mg PO Q4H PRN (Reason: fever or pain) Qty: 30 0RF No Action ketorolac 10 mg tablet 10 mg PO TID PRN (Reason: pain) Qty: 10 0RF Rx Instructions: Do not use his medications with any NSAIDs, only Tylenol if needed amoxicillin-pot clavulanate [Augmentin] 500-125 mg tablet 1 tab PO BID Qty: 14 0RF Referrals: Velvet Sharp MD [Primary Care Provider, Medical] Stand Alone Forms: Work/School Release Print Language: Colombian
[2025-07-29 14:21] LABS: IDNOW Serial# 08D9AD1C; Strep A Nucleic Acid Negative (Negative)
[2025-07-29 14:31] LABS: COVID-19 Test Negative (Negative); IDNOW Serial# 55D5AD1C; IDNOW Serial# 58CA691E; Influenza B2 Negative (Negative)
[2025-07-29 15:28] VITALS: O2SAT 97
--- OUTSIDE RECORDS SUMMARY | 2025-07-29 15:29 | XMS_ITS | Encounter Summary ---
Author Organization [employer] Address [address] [facility] [address] [place] [address] Care Team Providers Care Life Scientists Name Role Phone Velvet Sharp MD Primary Care Provider [phone] Reason for Visit * Reason Onset Date Comments Appointment Request 03/27/2023 Encounter Details Date Type Department Care Team ([facility] st Contact Info) Description 03/27/2023 Telephone [facility] [address] [place] [address] Velvet Sharp MD [address] [place] [phone] Appointment Request Social History Tobacco Use Types [...] Female 09/01/2022 10:35 AM EDT Sexual Orientation Straight 06/13/2025 2: 44 PM EDT documented as of this encounter Miscellaneous Notes * Telephone Encounter - Rasheeda Daigle RN - 03/31/2023 4:09 PM EDT Second attempt for triage. Same message of this number is not accepting calls. Unable to LVM. Unable to send text message via [employer] gwendolyn. * Telephone Encounter - Rasheeda Daigle [...] allergic reaction ) Please contact pt at [phone] documented in this encounter Plan of Treatment Upcoming Encounters Date Type Department Care Team ([facility] st Contact Info) Description 10/19/2025 8:00 AM EST Office Visit [facility] [address] [place] [address] Francoise Cotto documented as of this encounter Visit Diagnoses Not on filedocumented in this encounter Care Teams Life Scientists Relationship Specialty Start Date End Date Velvet Sharp MD [address] [place] [address] PCP - General Family Medicine 02/02/19 documented as of this encounter
--- OUTSIDE RECORDS SUMMARY | 2025-07-29 15:30 | XMS_ITS | Encounter Summary ---
Author Organization [employer] Address [address] [facility] [address] [place] [address] Care Team Providers Care Trustee Of Estate Name Role Phone Velvet Sharp MD Primary Care Provider [phone] Encounter Details Date Type Department Care Team (Late st Contact Info) Description 07/29/2025 Orders Only GENERIC EXTERNAL DATA DEPARTMENT Provider, Generic External Data Social History Tobacco Use Types Packs/Day Years [...] Care Team (Late st Contact Info) Description 10/19/2025 8:00 AM EST Office Visit [facility] [address] [place] [address] Francoise Cotto documented as of this encounter Procedures Procedure Name Priority Date/Time Associated Diagnosis Comments INFLUENZA A B2 ID NOW (LAYNE) Routine 07/29/2025 2:07 PM EDT STREP A NUCLEIC ACID Routine 07/29/2025 2:07 PM EDT COVID-19 ID NOW (LAYNE) Routine 07/29/2025 2:07 PM EDT documented in this encounter Results * Influenza A B2 ID NOW (Layne) (07/29/2025 2:07 PM EDT) IDNOW SERIAL# [id number] [facility] Influenza A Negative Negative [facility] Influenza B2 Negative Negative [facility] Influenza A B2 Note See Note [facility] Comment:The Layne ID NOW In fluenza A B2 test is used for thequalitative detection of influenza A and B from patientswith signs and symptoms of respiratory infection.Negative results do not preclude influenza virus infectionand should not be used as the sole basis for diagnosis,treatment or other patient management decisions.There is a risk of false negative results due to thepresence of variants in the viral targets of the assay, lowlevels of virus in the specimen and co- infection withRespiratory Syncytial Virus. 07/29/2025 2:07 PM EDT 07/29/2025 2:11 PM EDT us Generic External Data Provider LAB MICROBIOLOGY - GENERAL ORDERABLES Final Result Performing Organization Address [facility] Co de Phone Number [facility] [address] [place] [phone] * COVID-19 ID NOW (LAYNE) (07/29/2025 2:07 PM EDT) IDNOW SERIAL# [id number] [facility] COVID-19 TEST Negative Negative [facility] COVID-19 NOTE See Note [facility] Comment: Results are for the identification of SARS-CoV2 RNA. TheSARS-CoV2 RNA is generally detectable in respiratory samplesduring the acute phase of infection. Positive results areindicative of the presence of SARS-CoV-2 RNA; clinicalcorrelation with patient history and other diagnosticinformation is necessary to determine patient infectionstatus. Positive results do not rule out bacterial infectionor co- infection with other viruses.Testing facilities within the [facility] and [facility] are required to report all positive results tothe appropriate public health authorities.Negative results should be treated as presumptive and, ifinconsistent with clinical signs and symptoms or necessaryfor patient management, should be tested with differentauthorized or cleared molecular tests. Negative results donot preclude SARS-CoV2 RNA infection and should not be usedas the sole basis for patient management decisions. Negativeresults should be considered in the context of a patient'srecent exposures, history and the presence of clinical signsand symptoms consistent with COVID-19.This test has been authorized by the FDA under an EmergencyUse Authorization (EUA) for use by authorized laboratories.Testing performed on the Layne ID NOW utilizing NAAT. 07/29/2025 2:07 PM EDT 07/29/2025 2:11 PM EDT us Generic External Data Provider LAB MOLECULAR TAZ GNOSTICS ORDERABLES Final Result Performing Organization Address [facility]/ZIP Co de Phone Number [facility] [address] [place] [phone] * Strep A Nucleic Acid (07/29/2025 2:07 PM EDT) IDNOW SERIAL# [id number] [facility] Strep A Nucleic Acid Negative Negative [facility] Comment:All test results mus t be correlated with clinical findings.This test has not been evaluated for monitoring treatment ofinfection.Additional follow-up testing using the culture method isrequired if the result is negative and clinical symptomspersist, or in the event of an acute rheumatic feveroutbreak. 07/29/2025 2:07 PM EDT 07/29/2025 2:11 PM EDT us Generic External Data Provider LAB MICROBIOLOGY - GENERAL ORDERABLES Final Result [facility] [address] [place] [phone] documented in this encounter Visit Diagnoses Not on filedocumented in this encounter Additional Health Concerns Assessment Noted Time PHQ-9 Depression Total Score: 5 12/02/19 25 10:32 AM EST documented as of this encounter Care Teams Trustee Of Estate Relationship Specialty Start Date End Date Velvet Sharp MD [address] [place] [address] PCP - General Family Medicine 02/02/19 documented as of this encounter
--- OUTSIDE RECORDS SUMMARY | 2025-07-29 15:30 | XMS_ITS | Clinical Summary ---
Author Organization [employer] Address [address] [facility] [address] [place] [address] Care Team Providers Care Farm Agent Name Role Phone Velvet Sharp MD Primary Care Provider [phone] Allergies No known active allergies Medications * This document contains information received from the source organization and may not represent a complete record from that organization. magnesium oxide (Mag-Ox) 400 MG tablet Take 1 tablet by mouth in the morning. 2 Active magnesium oxide (Mag-Ox) 400 MG tablet Take 1 tablet by mouth in the morning. 2 Active clotrimazole (Lotrimin) 1 % cream Apply topically 2 times daily. 28 g 1 5 Active Additional Information Patient not taking.Reported on 04/18/2025 norgestimate-et hinyl estradiol (Ortho Tri-Cyclen,Anuradha essa) 0.18/0.215/0.25 MG-35 MCG tablet Take 1 tablet by mouth Once per day. 1 Active ibuprofen (IBU) 800 MG tablet 1 tablet every 8 hours with food for 7 days. 21 tablet 5 Active Additional Information Patient not taking.Reported on 04/18/2025 chlorhexidine (Peridex) 0.12 % solution Swish 15 mL morning and night for 1 minute. Spit, do not swallow. Do not eat or drink for 30 minutes following use. 473 mL 5 Active Active Problems Problem Noted Date Diagnosed Date Anxiety 12/13/2024 History of PCOS 04/21/2023 Acne vulgaris 01/25/2021 Hirsutism 05/18/2020 Secondary amenorrhea 05/18/2020 Resolved Problems Problem Noted Date Diagnosed Date Resolved Date Gastroenteritis 01/21/2024 12/13/2024 Assessment & Plan (01/22/2024 2:09 AM EDT): Ordered laboratories since diarrhea has not improved and I prescribed Zofran for nausea. Labs: Salmonella, Ova and parasites Acute ear infection, right 04/21/2023 0 12/13/2024 Encounters Date Type Department Care Team Description 07/29/2025 Orders Only GENERIC EXTERNAL DATA DEPARTMENT Provider, Generic External Data 07/17/2025 Telephone [facility] MEDICINE [address] [place] [address] Dinorah Ocampo CNM chart prep 06/20/2025 Telephone [facility] MED & PEDS [address] [place] [address] Velvet Sharp MD u/s order 06/20/2025 Orders Only [facility] [address] [place] [address] Brayan Robles MD Pelvic pain (Primary Dx) 06/19/2025 Telephone [facility] [address] [place] [address] Brayan Robles MD Request For Order(s) 06/14/2025 11:15 AM EDT Office Visit [facility] [address] [place] [address] Brayan Robles MD Pelvic pain (Primary Dx); Other microscopic hematuria 06/14/2025 Travel 06/13/2025 Travel 06/13/2025 Telephone [facility] [address] [place] [address] Velvet Sharp MD Nurse Triage 06/12/2025 Telephone [facility] WALK-IN CENTER [address] [place] [address] Aggie Vickers MA from Last 3 Months Immunizations Immunization Administration Dates Next Due BCG 2004 DTaP [...] Q2 Not on file 12/02/2024 Comments No Intention Date Recorded No desire to become (finding) 0 01/10/2025 Sex and Gender Information Value Date Recorded Sex Assigned at Female 09/01/2022 10:35 AM EDT Legal Sex Female 10:35 AM EDT Gender Identity Female 09/01/2022 10:35 AM EDT Sexual Orientation Straight 06/13/2025 2: 44 PM EDT Last Filed Vital Signs Vital Sign Reading Time Taken Comments Blood Pressure 133/94 06/14/2025 11:06 AM EDT Pulse 88 06/14/2025 11:06 AM EDT Temperature 36.5 C (97.7 F) 06/14/2025 11:06 AM EDT Respiratory Rate 20 06/14/2025 11:06 AM EDT Oxygen Saturation 99% 06/14/2025 11:06 AM EDT Inhaled Oxygen Concentration - - Weight 88 kg (194 lb) 06/14/2025 11:06 AM EDT Height 165.7 cm (5' 5.25 ) 06/14/2025 11:06 AM E DT Body Mass Index 32.04 06/14/2025 11:06 AM EDT Plan of Treatment Upcoming Encounters Date Type Department Care Team (Late st Contact Info) Description 10/19/2025 8:00 AM EST Office Visit [facility] ADULT DENTAL [address] [place] [address] Francoise Cotto Health Maintenance Due Date Last Done Comments Meningococcal B Vaccine (1 of 2 - Standard) 2020 Pap Smear 2025 Influenza Vaccine (#1) 2025 , 09/03/2023, 07/31/2022, Additional history exists Dental Oral Exam 10/19/2025 04/18/2025, 09/06/2024 Dental Prophylaxis 10/19/2025 04/18/2025, 1 11/06/2023, 02/08/2024, Additional history exists Alcohol/Substance Use Screening 12/02/2025 12/02/2024 Chlamydia and Gonorrhea Screening 12/02/2025 12/02/2024 Depression Screening 12/02/2025 12/02/2024, 12/02/19 25 SDOH Screening 12/02/2025 12/02/2024 Family Planning (PISQ) 01/10/2026 01/10/2025 Dental X-Ray: Bitewings 04/19/2026 04/18/20 25, 02/08/2024, 10/14/2022 Disability Screening 06/13/2026 06/13/2025 Tobacco Screening 06/14/2026 06/14/2025 DTaP/Tdap/Td Vaccines (7 - Td or Tdap) 07/21/2027 07/21/2017, 06/16/2017, 01/03/2010, Additional history exists Dental X-Ray: Full Mouth 04/19/2028 04/18/2025 Zoster Vaccines (1 of 2) 2054 RSV [...] 017 COVID-19 Vaccine Completed 12/02/2024, , 05/07/2021 HIV Screening Completed 12/02/2024 Hepatitis C Screening Completed 12/02/2024 Pneumococcal Vaccine: Pediatrics (0 to 5 Years) and At-Risk Patients (6 to 49) Years Aged Out No longer eligible based on patient's age to complete this topic RSV under 20 months Aged Out No longe r eligible based on patient's age to complete this topic Rotavirus Vaccines Aged Out No longer eligible based on patient's age to complete this topic Procedures Procedure Name Priority Date/Time Associated Diagnosis Comments COVID-19 ID NOW (LAYNE) Routine 07/29/2025 2:07 PM EDT INFLUENZA A B2 ID NOW (LAYNE) Routine 07/29/2025 2:07 PM EDT STREP A NUCLEIC ACID Routine 07/29/2025 2:07 PM EDT PROPHYLAXIS - ADULT Routine 04/18/2025 8 :00 AM EDT INTRAORAL - COMPLETE SERIES OF RADIOGRAPHIC IMAGES Routine 04/18/2025 8:00 AM EDT PERIODIC ORAL EVALUATION - ESTABLISHED PATIENT Routine 04/18/2025 8:00 AM EDT CHLAMYDIA/N. GONORRHOEAE RNA, TMA, UROGENITAL Routine 12/02/2024 10:50 AM EST Encounter for immunization Annual physical exam HEPATITIS C AB W/REFL TO HCV RNA, QN, PCR Routine 12/02/2024 10:48 AM EST Encounter for immunization Annual physical exam HIV 1/2 ANTIGEN/ANTIBODY, FOURTH GENERATION W/RFL Routine 12/02/2024 10:48 AM EST Encounter for immunization Annual physical exam from Last 3 Months or Most Recently Relevant to Health Maintenance Results * Influenza A B2 ID NOW (Layne) (07/29/2025 2:07 PM EDT) IDNOW SERIAL# [id number] [facility] Influenza A Negative Negative [facility] Influenza B2 Negative Negative [facility] Influenza A B2 Note See Note [facility] Comment:The Layne ID NOW In [...] 2:07 PM EDT 07/29/2025 2:11 PM EDT Generic External Data Provider LAB MICROBIOLOGY - GENERAL ORDERABLES Final Result Performing Organization Address [facility] Co de Phone Number [facility] [address] [place] [phone] * Strep A Nucleic Acid (07/29/2025 2:07 PM EDT) IDNOW SERIAL# [id number] [facility] Strep A Nucleic Acid Negative Negative [facility] Comment:All test results mus t be correlated with clinical findings.This test has not been evaluated for monitoring treatment ofinfection.Additional follow-up testing using the culture method isrequired if the result is negative and clinical symptomspersist, or in the event of an acute rheumatic feveroutbreak. 07/29/2025 2:07 PM EDT 07/29/2025 2:11 PM EDT Generic External Data Provider LAB MICROBIOLOGY - GENERAL ORDERABLES Final Result Performing Organization Address [facility] Co de Phone Number [facility] [address] [place] [phone] * COVID-19 ID NOW (LAYNE) (07/29/2025 2:07 PM EDT) IDNOW SERIAL# [id number] [facility] COVID-19 TEST Negative Negative [facility] COVID-19 NOTE See Note [facility] Comment: Results are for the identification of SARS-CoV2 RNA. TheSARS-CoV2 RNA is generally detectable in respiratory samplesduring the acute phase of infection. Positive results areindicative of the presence of SARS-CoV-2 RNA; clinicalcorrelation with patient history and other diagnosticinformation is necessary to determine patient infectionstatus. Positive results do not rule out bacterial infectionor co- infection with other viruses.Testing facilities within the [place] and itsterritories are required to report all positive results [...] use by authorized laboratories.Testing performed on the Ya[employer] NOW utilizing NAAT. 07/29/2025 2:07 PM EDT 07/29/2025 2:11 PM EDT us Generic External Data Provider LAB MOLECULAR TAZ GNOSTICS ORDERABLES Final Result [facility] [address] [place] [phone] * Chlamydia/N. Gonorrhoeae RNA, TMA, Urogenitial (12/02/2024 10:50 AM EST) CT PCR NOT DETECTED Not Detect. [facility] Comment:A not detected test result does not exclude the possibilityof infection because test results can be affected byimproper specimen collection, concurrent antibiotic therapy,or the number of organisms in the specimen which may bebelow the sensitivity of the test. As with many diagnostictests, results from the Xpert CT/NG assay should beinterpreted in conjunction with other laboratory andclinical data available to the clinician.Xpert CT/NG performance has not been evaluated in patientsless than 14 years of age. The assay should not be used forthe evaluationof suspected sexual abuse or for other medico-legalindications. Additional testing is recommended in anycircumstance when false positive or false negative resultscould lead to adverse medical, social or psychologicalconsequences. NG PCR NOT DETECTED Not Detect. [facility] Comment:A not detected test result does not exclude the possibilityof infection because test results can be affected byimproper specimen collection, concurrent antibiotic therapy,or the number of organisms in the specimen which may bebelow the sensitivity of the test. As with many diagnostictests, results from the Xpert CT/NG assay should beinterpreted in conjunction with other laboratory andclinical data available to the clinician.Xpert CT/NG performance has not been evaluated in patientsless than 14 years of age. The assay should not be used forthe evaluationof suspected sexual abuse or for other medico-legalindications. Additional testing is recommended in anycircumstance when false positive or false negative resultscould lead to adverse medical, social or psychologicalconsequences. Swab (Vaginal Swab) 12/02/2024 10:50 AM EST 12/02/2024 11:42 AM EST Narrative [facility] - 12/02/2024 2:38 PM EST Urine Velvet Sharp MD LAB MICROBIOLOGY - GENERAL OR DERABLES Final Result Performing Organization Address [facility] Co de Phone Number [facility] [address] [place] [phone] * Hepatitis C Antibody with Reflex to HCV, RNA, Quantitative, Real-Time PCR (12/02/2024 10:48 AM EST) Hepatitis C Antibody Nonreactive Nonreactive [facility] Comment:Antibodies to HCV no t detected; does not exclude early acuteHCV infection. Blood Venous blood specimen / Unknown 12/02/2024 10:48 AM EST 12/02/2024 11:44 AM EST Velvet Sharp MD LAB BLOOD ORDERABLES Final Re sult [facility] [address] [place] [phone] [phone] * HIV-1/2 Antigen and Antibodies, Fourth Generation, with Reflexes (12/02/2024 10:48 AM EST) HIV AB/AG Nonreactive Nonreactive [facility] Comment:HIV-1 p24 Ag and/or HIV-1/HIV-2 Ab not detected.A test result that is nonreactive does not exclude thepossibility of exposure to or infection with HIV-1 and/orHIV-2. Nonreactive results in this assay for individualswith prior exposure to HIV-1 and/or HIV-2 may be due toantigen and antibody levels that are below the limit ofdetection of this assay.The [employer] HIV Ag/Ab Combo assay result andsupplemental assay results should be interpreted inconjunction with the patient's clinical presentation,history and other laboratory results. If the results areinconsistent with clinical evidence, additional testing issuggested to confirm the result. Blood Venous blood specimen / Unknown 12/02/2024 10:48 AM EST 12/02/2024 11:44 AM EST Velvet Sharp MD LAB BLOOD ORDERABLES Final Re sult Performing Organization Address City/[facility]/ZIP Co de Phone Number [facility] [address] [place] [address] [phone] from Last 3 Months or Most Recently Relevant to Health Maintenance Insurance [address] [place] [address] [address] [place] [address] [place] [id number] [facility] ADULT DENTAL - [facility] FULL (MEDICAID) [address] [place] [address] [address] [place] [address] [address] [place] [address] Care Teams Farm Agent Relationship Specialty Start Date End Date Velvet Sharp MD [address] [place] [phone] PCP - General Family Medicine 02/02/19
--- OUTSIDE RECORDS SUMMARY | 2025-07-29 15:30 | XMS_ITS | Encounter Summary ---
Author Organization [employer] Address [address] [facility] 7[address] [place] [address] Care Team Providers Care Senior Sales Assistant Name Role Phone Velvet Sharp MD Primary Care Provider Reason for Visit * Reason Onset Date Comments Appointment 06/26/2023 Encounter Details Date Type Department Care Team (Late st Contact Info) Description 06/26/2023 Telephone [facility] ADULT DENTAL [address] [place] [address] Clyde Robles Appointment Social History Tobacco Use [...] Description 10/19/2025 8:00 AM EST Office Visit [facility] ADULT DENT[facility] [address] [facility] [place] [address] Francoise Cotto documented as of this encounter Visit Diagnoses Not on filedocumented in this encounter Care Teams Senior Sales Assistant Relationship Specialty Start Date End Date Velvet Sharp MD [address] [place] [address] PCP - General Family Medicine 02/02/19 documented as of this encounter
--- OUTSIDE RECORDS SUMMARY | 2025-07-29 15:30 | XMS_ITS | Encounter Summary ---
Author Organization [employer] Address [address] [facility] [address] [place] [address] Care Team Providers Care Backend Python Developer Name Role Phone Velvet Sharp MD Primary Care Provider [phone] Encounter Details Date Type Department Care Team (Late st Contact Info) Description 07/21/2023 Orders Only [facility] MED & PEDS [address] [place], [place] [phone] Nisa Juarez LPN Social History Tobacco Use [...] Description 10/19/2025 8:00 AM EST Office Visit [facility] ADULT DENTAL [address] [place], [place] [phone] Francoise Cotto documented as of this encounter Visit Diagnoses Not on filedocumented in this encounter Care Teams Backend Python Developer Relationship Specialty Start Date End Date Velvet Sharp MD [address] [place] [address] PCP - General Family Medicine 02/02/19 documented as of this encounter
--- OUTSIDE RECORDS SUMMARY | 2025-07-29 15:30 | XMS_ITS | Encounter Summary ---
Author Organization [employer] Address [address] [facility] [address] [place] [address] Care Team Providers Care Hydrotel Operator Name Role Phone Velvet Sharp MD Primary Care Provider [phone] Reason for Visit * Reason Onset Date Comments u/s order 06/20/2025 Encounter Details Date Type Department Care Team ([facility] Contact Info) Description 06/20/2025 Telephone [facility] & PEDS [address] [place], [place] [phone] Velvet Sharp MD [address] [place] [address] u/s order Social History Tobacco Use Types Packs/Day Years [...] your housing situation today? I have amilcar stuart 12/02/[address] you li [...] encounter Miscellaneous Notes * Telephone Encounter - Jeremy Williamson - 06/20/2025 1:56 PM EDT Tc from Gina Torre at [facility] Radiology stating an order for an u/s of kidneys was placed and they need an u/s order for pelvic to be placed Contact Gina russell [phone] documented in this encounter Plan of Treatment Upcoming Encounters Date Type Department Care Team (Late st Contact Info) Description 10/19/2025 8:00 AM EST Office Visit [facility] ADULT D[facility] [address] [place] [address] Francoise Cotto documented as of this encounter Visit Diagnoses Not on filedocumented in this encounter Additional Health Concerns Assessment Noted Time PHQ-9 Depression Total Score: 5 12/02/19 25 10:32 AM EST documented as of this encounter Care Teams Hydrotel Operator Relationship Specialty Start Date End Date Velvet Sharp MD [address] [place] [address] PCP - General Family Medicine 02/02/19 documented as of this encounter
--- OUTSIDE RECORDS SUMMARY | 2025-07-29 15:30 | XMS_ITS | Encounter Summary ---
Author Organization [employer] Address [address] [place] [address] [address] [place] [address] Care Team Providers Care Finance Executive Name Role Phone Velvet Sharp MD Primary Care Provider [phone] Reason for Referral * Imaging (Routine) - Authorized Specialty Diagnoses / Procedures Referred By Contac t Referred To Contact Radiology Diagnoses Pelvic pain Procedures US Pelvis Transvaginal Brayan Robles MD [address] [place] [address] Phone: tel: fax: [address] Phone: tel: fax: Referral ID Status Reason Start Date Expiration Date V isits Requested Visits Authorized [id number] Authorized 06/20/2025 06/20/2026 1 1 * Imaging (Routine) - Authorized Specialty Diagnoses / Procedures Referred By Contac t Referred To Contact Radiology Diagnoses Pelvic pain Procedures Us Pelvis complete Brayan Robles MD [address] [place] [address] Phone: tel: fax: [address] Phone: tel: fax: Referral ID Status Reason Start Date Expiration Date V isits Requested Visits Authorized [id number] Authorized 06/20/2025 06/20/2026 1 1 Encounter Details Date Type Department Care Team (Late st Contact Info) Description 06/20/2025 Orders Only [facility] MED & PEDS [address] [place] [address] Brayan Robles MD [address] [place] [address] Pelvic pain (Primary Dx) Social History Tobacco Use Types Packs/Day Years [...] Description 10/19/2025 8:00 AM EST Office Visit [facility] ADULT DENTAL [address] [place] [address] Francoise Cotto Scheduled Orders Name Type Priority Associated Diagnoses Orde r Schedule Us Pelvis complete Imaging Routine Pelvic pain Expected: 06/20/2025, Expires: 06/20/2026 US Pelvis Transvaginal Imaging Routine Pelvic pain Expected: 06/20/2025, Expires: 06/20/2026 documented as of this encounter Visit Diagnoses Diagnosis Pelvic pain- Primary documented in this encounter Additional Health Concerns Assessment Noted Time PHQ-9 Depression Total Score: 5 12/02/19 25 10:32 AM EST documented as of this encounter Care Teams Finance Executive Relationship Specialty Start Date End Date Velvet Sharp MD [address] [place] [address] PCP - General Family Medicine 02/02/19 documented as of this encounter
--- OUTSIDE RECORDS SUMMARY | 2025-07-29 15:30 | XMS_ITS | Encounter Summary ---
Author Organization [employer] Address [address] [facility] 7[address] [place] [address] Care Team Providers Care Development Disability Specialist Name Role Phone Velvet Sharp MD Primary Care Provider [phone] Reason for Visit * Reason Onset Date Comments Results 07/16/2023 Encounter Details Date Type Department Care Team ([facility] st Contact Info) Description 07/16/2023 Telephone [facility] [address] [place] [address] Velvet Sharp MD [address] [place] [phone] Results Social History Tobacco Use Types Packs/Day [...] RN checked for US pelvis results [place] [facility] [place] [facility] [place]. Per pt, US done in [place]. Report not in system. Advised will f/u with Dinorah and return call to pt with plan. Pt agrees. * Telephone Encounter - Quita Marshall - 07/16/2023 3:34 PM EDT Tc from patient requesting lab test results. documented in this encounter Plan of Treatment Upcoming Encounters Date Type Department Care Team (Late st Contact Info) Description 10/19/2025 8:00 AM EST Office Visit [facility] ADULT DENTAL [address] [place] [address] Francoise Cotto documented as of this encounter Visit Diagnoses Not on filedocumented in this encounter Care Teams Development Disability Specialist Relationship Specialty Start Date End Date Velvet Sharp MD [address] [place] [address] PCP - General Family Medicine 02/02/19 documented as of this encounter
[2025-07-29 15:49] VITALS: BP 121/62; PULSE 78; RESP 16; TEMP 36.6; O2SAT 97
== END 2025-07-29 15:54 | disposition home or self-care (01) ==
PROVIDERS: Registered Nurse Emergency; Emergency Provider Emergency Medicine Emergency Medical Services; PCP Pediatrics
DX: B34.9 Viral infection, unspecified (principal); R51.9 Headache, unspecified; R50.9 Fever, unspecified; R07.89 Other chest pain; J02.9 Acute pharyngitis, unspecified; M79.10 Myalgia, unspecified site; Z11.52 Encounter for screening for COVID-19; Z79.899 Other long term (current) drug therapy
CPT/HCPCS: 87502; 87635; 87651; 93005; 99283; 99284

== ENCOUNTER → 2025-07-29 13:47 | Outpatient (BNV) | payer MEDICAID, SELFPAY | PROVIDERS: Emergency Provider Emergency Medicine Emergency Medical Services; PCP Pediatrics; Visit Provider Internal Medicine Cardiovascular Disease | DX: R94.31 Abnormal electrocardiogram [ECG] [EKG] (principal); R07.89 Other chest pain | CPT/HCPCS: 93010 ==

== ENCOUNTER 2025-09-14 16:31 | Outpatient (REF) | payer MEDICAID, OTHER, SELFPAY ==
--- OUTSIDE RECORDS SUMMARY | 2025-09-14 13:45 | XMS_ITS | Encounter Summary ---
Author Organization [employer] Address [address] [facility] 7t [place] [address] Care Team Providers Care Corporation Officer Name Role Phone Velvet Sharp MD Primary Care Provider [phone] Reason for Visit * Reason Comments pap Encounter Details Date Type Department Care Team (Latest Contact Info) Description 09/14/2025 1:45 PM EST Procedure Visit [facility] MED[facility]INE [address], [place] [phone] Dinorah Ocampo CNM [address] [place] [address] Cervical cancer screening (Primary Dx); Encntr screen for infections w sexl mode of transmiss; Checking subdermal contraceptive Social History Tobacco Use Types Packs/Day Years [...] is your housing situation today? I have housing today, but I am worried about losing housing in the future 09/14/[address] you li ve. Do you have problems with any of the following? None of the above 09/14/2025 Food Insecurity Answer Date Recorded Within the past 12 months, y ou worried that your food would run out before you got money to buy more: Sometimes True 2024 Within the past 12 months,th e food you bought just didn't last and you didn't have enough money to get more: Never True 09/14/2025 Transportation Answer Date Recorded In the past 12 months, has l ack of transportation kept you from medical appts, meetings, work or from getting things needed for daily living? Yes, it has kept me from medical appointments or getting medications. 09/14/2025 Utilities Answer Date Recorded In the past [...] Date Recorded No desire to become (finding) 1 11/14/2024 Sex and Gender Information Value Date Recorded Sex Assigned at Female 09/01/2022 10:35 AM EDT Legal Sex Female 10:35 AM EDT Gender Identity Female 09/01/2022 10:35 AM EDT Sexual Orientation Straight 06/13/2025 2: 44 PM EDT documented as of this encounter Last Filed Vital Signs Vital Sign Reading Time Taken Comments Blood Pressure 138/80 09/14/2025 1:45 PM EST Pulse 94 09/14/2025 1:45 PM EST Temperature 36.9 C (98.4 F) 09/14/2025 1:45 PM EST Respiratory Rate 14 09/14/2025 1:45 PM EST Oxygen Saturation 97% 09/14/2025 1:45 PM EST Inhaled Oxygen Concentration - - Weight 88.4 kg (194 lb 12.8 oz) 09/14/2025 1:45 PM EST Height - - Body Mass Index 32.17 06/14/2025 11:06 AM EDT documented in this encounter Functional Status * Over the last 2 weeks, how often have you been bothered by any of the following problems? Question Answer Date of Assessment Author Feeling nervous, anxious, or on edge 2 09/02 2:25 PM EST Aggie Vickers MA Not being able to stop or co ntrol worrying 1 09/14/2025 2:25 PM EST Aggie Vickers M A Worrying too much about diff erent things 1 09/14/2025 2:25 PM EST Aggie Vickers M A Trouble relaxing 2 09/14/2025 2:25 PM EST Aggie Verdin MA Being so restless that it is hard to sit still 0 09/14/2025 2:25 PM Aggie Johnston M A Becoming easily annoyed or irritable 1 09/02 2:25 PM Aggie Johnston MA Feeling afraid as if somethi ng awful might happen 1 09/14/2025 2:25 PM Aggie Johnston M A QUAN-7 Total Score 8 09/14/2025 2:25 PM Aggie Johnston MA documented as of this encounter Progress Notes * Dinorah Ocampo, AMMON - 09/14/2025 1:45 PM EST Subjective Patient ID: Bolivar Sawant is a 20 y.o. female who presents for pap Here for initial pap. Nexplanon inserted 12/2024. Known PCOS. Gonorrhea/Chlamydia, HIV, syphilis, Hep C neg 11/2024 1 AMAB partner for more than a year, no safety concerns. Agrees to pap based STI testing today. Largely amenorrheic with implant, notes occasional spotting. Happy with method. Not planning in the next year. Occasional vaginal itch. Review of Systems Genitourinary: Negative for dyspareunia, dysuria, frequency, genital sores, hematuria, menstrual problem, pelvic pain, urgency, vaginal bleeding, vaginal discharge and vaginal pain. No abnormal pap, no abnormal bleeding, no breast pain, no breast mass, no nipple discharge Objective BP 138/80 (BP Location: Left arm, Patient Position: Sitting, BP Cuff Size: Adult) Pulse 94 Temp98.4 ??F (36.9 ??C) (Oral) Resp 14 Wt 194 lb 12.8 oz (88.4 kg) LMP 12/17/2024 SpO2 97% BMI 32.17 kg/m?? Physical Exam Constitutional: Appearance: Normal appearance. Genitourinary: General: Normal vulva. Labia: Right: No rash, tenderness, lesion or injury. Left: No rash, tenderness, lesion or injury. Vagina: Normal. No signs of injury and foreign body. No vaginal discharge, erythema, tenderness, bleeding, lesions or prolapsed vaginal ramirez. Cervix: Normal. No cervical motion tenderness, discharge, friability, lesion, erythema, cervical bleeding or eversion. Uterus: Normal. Not enlarged and not tender. Adnexa: Right adnexa normal and left adnexa normal. Right: No mass, tenderness or fullness. Left: No mass, tenderness or fullness. Comments: Scant blood in vagina Skin: Comments: Nexplanon palpable in left arm, site well healed Neurological: Mental Status: She is alert. Psychiatric: Mood and Affect: Mood normal. Behavior: Behavior normal. Assessment/Plan Diagnoses and all orders for this visit: Cervical cancer screening - Pap Smear Initial pap today. Reviewed indications for screening and usual followup. Will contact with results. Repeat 3y if normal. Reviewed that minor cellular changes are common, and if these are noted, we will repeat pap in 1y. If yeast on pap, will treat. Encntr screen for infections w sexl mode of transmiss - STI testing add on (NG, CT, Trich) Pap based STI testing today. Will contact with results. Checking subdermal contraceptive Report prolonged, frequent or heavy bleeding. Reassured, normal to have light, infrequent or absentbleeding. Remove/replace Nexplanon by 5y from insertion date. May remove any time prior to that if desired. documented in this encounter Plan of Treatment Upcoming Encounters Date Type Department Care Team (Late st Contact Info) Description 10/19/2025 8:00 AM EST Office Visit [facility] ADULT DENTAL [address] [place] [id number] Francoise Cotto Scheduled Orders Name Type Priority Associated Diagnoses Orde r Schedule Pap Smear Pathology and Cytology Routine Cervical cancer screening Ordered: 09/14/2025 STI testing add on (NG, CT, Trich) Pathology and Cytology Routine Encntr screen for infections w sexl mode of transmiss Ordered: 09/14/2025 documented as of this encounter Visit Diagnoses Diagnosis Cervical cancer screening- Primary Screening for malignant neoplasm of the cervix Encntr screen for infections w sexl mode of transmiss Checking subdermal contraceptive Surveillance of previously prescribed implantable subdermal contraceptive documented in this encounter Additional Health Concerns Assessment Noted Time PHQ-9 Depression Total Score: 5 12/02/19 25 10:32 AM EST documented as of this encounter Care Teams Corporation Officer Relationship Specialty Start Date End Date Velvet Sharp MD [address] [place] [address] PCP - General Family Medicine 02/02/19 documented as of this encounter
--- OUTSIDE RECORDS SUMMARY | 2025-09-14 18:53 | XMS_ITS | Encounter Summary ---
Author Organization [employer] Address 75 [facility] 7t [place] [address] Care Team Providers Care Six Pack Loader Operator Name Role Phone Velvet Sharp MD Primary Care Provider [phone] Reason for Visit * Reason Onset Date Comments chart prep 09/13/2025 Encounter Details Date Type Department Care Team ([facility] st Contact Info) Description 09/13/2025 Telephone [facility] [address] [place] [address] Velvet Sharp MD [address] [place] [id number] chart prep Social History Tobacco Use Types Packs/Day Years [...] encounter Miscellaneous Notes * Telephone Encounter - Lore Woods MA - 09/13/2025 3:28 PM EST ..Chart Prep Labs: not applicable Images: not applicable Vaccines due: Covid Due and Flu Due Referrals: Not Applicable Screenings: LMP Overdue care gaps: SDOH and GAD7 documented in this encounter Plan of Treatment Upcoming Encounters Date Type Department Care Team ([facility] st Contact Info) Description 10/19/2025 8:00 AM EST Office Visit [facility] ADULT D[facility]AL [address] [place] [address] Francoise Cotto documented as of this encounter Visit Diagnoses Not on filedocumented in this encounter Additional Health Concerns Assessment Noted Time PHQ-9 Depression Total Score: 5 12/02/19 25 10:32 AM EST documented as of this encounter Care Teams Six Pack Loader Operator Relationship Specialty Start Date End Date Velvet Sharp MD [address] [place] [address] PCP - General Family Medicine 02/02/19 documented as of this encounter
--- OUTSIDE RECORDS SUMMARY | 2025-09-14 18:53 | XMS_ITS | Encounter Summary ---
Author Organization [employer] Address [address] [place] [address] [address] [place] [address] Care Team Providers Care Neuro Psych Sales Specialist Name Role Phone Velvet Sharp MD Primary Care Provider [phone] Reason for Referral * Imaging (Routine) - Authorized Specialty Diagnoses / Procedures Referred By Contac t Referred To Contact Radiology Diagnoses Pelvic pain Procedures US Pelvis Transvaginal Brayan Robles MD [address] [place] [address] Phone: tel: fax: [address] Phone: tel: fax: Referral ID Status Reason Start Date Expiration Date V isits Requested Visits Authorized [id number] Authorized 06/20/2025 06/20/2026 1 1 * Imaging (Routine) - Authorized Specialty Diagnoses / Procedures Referred By Contac t Referred To Contact Radiology Diagnoses Pelvic pain Procedures Us Pelvis complete Brayan Robles MD [address] [place] [address] Phone: tel: fax: [address] Phone: tel: fax: Referral ID Status Reason Start Date Expiration Date V isits Requested Visits Authorized [id number] Authorized 06/20/2025 06/20/2026 1 1 Encounter Details Date Type Department Care Team (Late st Contact Info) Description 06/20/2025 Orders Only [facility] P[facility] [address] [place] [address] Brayan Robles MD [address] [place] [address] Pelvic pain (Primary Dx) Social History Tobacco [...] Description 10/19/2025 8:00 AM EST Office Visit [facility] ADULT DENTAL [address] [place] [address] Francoise Cotto Scheduled Orders Name Type Priority [...] documented as of this encounter Care Teams Neuro Psych Sales Specialist Relationship Specialty Start Date End Date Velvet Sharp MD [address] [place] [address] PCP - General Family Medicine 02/02/19 documented as of this encounter
--- OUTSIDE RECORDS SUMMARY | 2025-09-14 18:53 | XMS_ITS | Encounter Summary ---
Author Organization [employer] Address [address] [facility] [address] [place] [address] Care Team Providers Care Information Management Manager Name Role Phone Velvet Sharp MD Primary Care Provider [phone] Encounter Details Date Type Department Care Team (Late st Contact Info) Description 07/21/2023 Orders Only [facility] & [facility] [address] [place], [place] [phone] Nisa Juarez LPN Social History Tobacco Use [...] [facility] ADULT D[facility] [address] [place], [place] [phone] Francoise Cotto documented as of this encounter Visit Diagnoses Not on filedocumented in this encounter Care Teams Information Management Manager Relationship Specialty Start Date End Date Velvet Sharp MD [address] [place] [address] PCP - General Family Medicine 02/02/19 documented as of this encounter
--- OUTSIDE RECORDS SUMMARY | 2025-09-14 18:53 | XMS_ITS | Encounter Summary ---
Author Organization [employer] Address [address] [facility] [address] [place] [address] Care Team Providers Care Dermatology Technician Name Role Phone Velvet Sharp MD Primary Care Provider [phone] Reason for Visit * Reason Onset Date Comments u/s order 06/20/2025 Encounter Details Date Type Department Care Team ([facility] Contact Info) Description 06/20/2025 Telephone [facility]ED[facility] [address] [place], [place] [phone] Velvet Sharp MD [address] [place] [address] u/s order Social History Tobacco Use Types [...] PM EDT Tc from Gina Torre at [facility] Radiology stating an order for an u/s of kidneys was placed and they need an u/s order for pelvic to be placed Contact Gina russell [phone] documented in this encounter Plan of Treatment Upcoming Encounters Date Type Department Care Team (Late st Contact Info) Description 10/19/2025 8:00 AM EST Office Visit [facility] ADULT D[facility] [address] [place] [address] Francoise Cotto documented as of this encounter Visit Diagnoses Not on filedocumented in this encounter Additional Health Concerns Assessment Noted Time PHQ-9 Depression Total Score: 5 12/02/19 25 10:32 AM EST documented as of this encounter Care Teams Dermatology Technician Relationship Specialty Start Date End Date Velvet Sharp MD [address] [place] [address] PCP - General Family Medicine 02/02/19 documented as of this encounter
--- OUTSIDE RECORDS SUMMARY | 2025-09-14 18:53 | XMS_ITS | Encounter Summary ---
Author Organization [employer] Address [address] [facility] 7t [place] [address] Care Team Providers Care Cryptographic Center Specialist Name Role Phone Velvet Sharp MD Primary Care Provider [phone] Reason for Visit * Reason Onset Date Comments Appointment Request 03/27/2023 Encounter Details Date Type Department Care Team ([facility] st Contact Info) Description 03/27/2023 Telephone [facility] MED[facility]INE [address] [place] [address] Velvet Sharp MD [address] [place] [address] Appointment Request Social History Tobacco Use Types [...] LVM. Unable to send text message via [employer] gwendolyn. * Telephone Encounter - Rasheeda Daigle [...] allergic reaction ) Please contact pt at [phone] documented in this encounter Plan of Treatment Upcoming Encounters Date Type Department Care Team ([facility] st Contact Info) Description 10/19/2025 8:00 AM EST Office Visit [facility] D[facility] [address] [place] [address] Francoise Cotto documented as of this encounter Visit Diagnoses Not on filedocumented in this encounter Care Teams Cryptographic Center Specialist Relationship Specialty Start Date End Date Velvet Sharp MD [address] [place] [address] PCP - General Family Medicine 02/02/19 documented as of this encounter
--- OUTSIDE RECORDS SUMMARY | 2025-09-14 18:53 | XMS_ITS | Encounter Summary ---
Author Organization [employer] Address [address] [facility] 7t [place] [address] Care Team Providers Care Director Talent Acquisition Name Role Phone Velvet Sharp MD Primary Care Provider [phone] Encounter Details Date Type Department Care Team (Latest Contact Info) Description 09/14/2025 Travel Social History Tobacco Use Types Packs/Day [...] t he electric, gas, oil or water [employer] threatened to shut off services in your [...] PM EDT documented as of this encounter Functional Status * Over the last 2 weeks, how often have you been bothered by any of the following problems? Question Answer Date of Assessment Author Feeling nervous, anxious, or on edge 2 09/02 2:25 PM Aggie Johnston MA Not being able to stop or co ntrol worrying 1 09/14/2025 2:25 PM Aggie Johnston M A Worrying too much about diff erent things 1 09/14/2025 2:25 PM Aggie Johnston M A Trouble relaxing 2 09/14/2025 2:25 [...] Johnston MA documented as of this encounter Plan of Treatment Upcoming Encounters Date Type Department Care Team (Late st Contact Info) Description 10/19/2025 8:00 AM EST Office Visit [facility] ADULT DENTAL [address] [place] [address] Francoise Cotto documented as of this encounter Visit Diagnoses Not on filedocumented in this encounter Additional Health Concerns Assessment Noted Time PHQ-9 Depression Total Score: 5 12/02/19 25 10:32 AM EST documented as of this encounter Care Teams Director Talent Acquisition Relationship Specialty Start Date End Date Velvet Sharp MD [address] [place] [address] PCP - General Family Medicine 02/02/19 documented as of this encounter
--- OUTSIDE RECORDS SUMMARY | 2025-09-14 18:53 | XMS_ITS | Encounter Summary ---
Author Organization [employer] Address [address] [facility] 7t [place] [address] Care Team Providers Care Partner Management Consultant Name Role Phone Velvet Sharp MD Primary Care Provider [phone] Reason for Visit * Reason Onset Date Comments Results 07/16/2023 Encounter Details Date Type Department Care Team ([facility] st Contact Info) Description 07/16/2023 Telephone [facility] MEDICINE [address] [place] [address] Velvet Sharp MD [address] [place] [address] Results Social History Tobacco Use Types Packs/Day [...] RN checked for US pelvis results in [facility] and [facility]No results. Per pt, US done in [place]. Report not in system. Advised will f/u [...] [facility] [address] [place] [address] Francoise Cotto documented as of this encounter Visit Diagnoses Not on filedocumented in this encounter Care Teams Partner Management Consultant Relationship Specialty Start Date End Date Velvet Sharp MD [address] [place] [address] PCP - General Family Medicine 02/02/19 documented as of this encounter
--- OUTSIDE RECORDS SUMMARY | 2025-09-14 18:53 | XMS_ITS | Clinical Summary ---
Author Organization [employer] Address 75 [facility] 7t [place] [address] Care Team Providers Care Senior Bioinformatics Specialist Name Role Phone Velvet Sharp MD Primary Care Provider [phone] Allergies No known active allergies Medications * This document contains information received from the source organization and may not represent a complete record from that organization. magnesium oxide (Mag-Ox) 400 MG tablet Take 1 tablet by mouth in the morning. 07/31/20 22 Active magnesium oxide (Mag-Ox) 400 MG tablet Take 1 tablet by mouth in the morning. 07/31/20 22 Active clotrimazole (Lotrimin) 1 % cream Apply topically 2 times daily. 28 g 1 12/02/19 25 Active Additional Information Patient not taking.Reported on 04/18/2025 ibuprofen (IBU) 800 MG tablet 1 tablet every 8 hours with food for 7 days. 21 tablet 01/18/20 25 Active Additional Information Patient not taking.Reported on 04/18/2025 chlorhexidine (Peridex) 0.12 % solution Swish 15 mL morning and night for 1 minute. Spit, do not swallow. Do not eat or drink for 30 minutes following use. 473 mL 04/18/20 25 Active norgestimate-e thinyl estradiol (Ortho Tri-Cyclen,Tri flora) 0.18/0.215/0.2 5 MG-35 MCG tablet Take 1 tablet by mouth Once per day. 02/05/20 21 025 Discontinued Active Problems Problem Noted Date Diagnosed Date [...] Encounters Date Type Department Care Team Description 09/14/2025 1:45 PM EST Procedure Visit [address] [address] Dinorah Ocampo CNM Cervical cancer screening (Primary Dx); Encntr screen for infections w sexl mode of transmiss; Checking subdermal contraceptive 09/14/2025 Travel 09/13/[address] [address] Velvet Sharp MD chart prep 07/29/2025 Orders Only GENERIC EXTERNAL DATA DEPARTMENT Provider, Generic External Data 07/17/[address] [address] Dinorah Ocampo CNM chart prep 06/20/2025 Telephone [facility] MED & PEDS [address] [place] [address] Velvet Sharp MD u/s order 06/20/2025 Orders Only [facility] MED & PEDS [address] [place] [address] Brayan Robles MD Pelvic pain (Primary Dx) 06/19/2025 Telephone [facility] MED [facility] PED[facility] [address] [place] [address] Brayan Robles MD Request For Order(s) 06/14/2025 11:15 AM EDT Office Visit [facility] MED & PEDS [address] [place] [address] Brayan Robles MD Pelvic pain (Primary Dx); Other microscopic hematuria 06/14/2025 Travel from Last 3 Months Immunizations Immunization Administration [...] free, adsorbed 06/16/2017 Tdap 07/21/2017 Varicella 12/08/2018,07/21/2017 Family History Medical History Relation Name Comments Breast cancer Neg Hx Social History Tobacco Use Types Packs/Day Years [...] 12.8 oz) 09/14/2025 1:45 PM EST Height 165.7 cm (5' 5.25 ) 06/14/2025 1 1:06 AM EDT Body Mass Index 32.17 06/14/2025 11:06 AM EDT Plan of Treatment Upcoming Encounters Date Type Department Care Team (Late st Contact Info) Description 10/19/2025 8:00 AM EST Office Visit [facility] ADULT DENTAL [address] [place] [address] Francoise Cotto Health Maintenance Due Date Last Done Comments Meningococcal B Vaccine (1 of 2 - Standard) 2020 Pap Smear 2025 COVID-19 Vaccine ( - season) 2025 12/02/2024, 2021, 05/07/2021 Influenza Vaccine (#1) 2025 , 09/03/2023, 07/31/2022, Additional history exists Dental Oral Exam 10/19/2025 04/18/2025, 09/06/2024 Dental Prophylaxis 10/19/2025 04/18/2025, 1 11/06/2023, 02/08/2024, Additional history exists Alcohol/Substance Use Screening 12/02/2025 12/02/2024 Chlamydia and Gonorrhea Screening 12/02/2025 12/02/2024 Depression Screening 12/02/2025 12/02/2024, 12/02/19 Dental X-Ray: Bitewings 04/19/2026 04/18/20 25, 02/08/2024, 10/14/2022 Disability Screening 06/13/2026 06/13/2025 Tobacco Screening 06/14/2026 06/14/2025 Family Planning (PISQ) 09/14/2026 09/14/2025 SDOH Screening 09/14/2026 09/14/2025 DTaP/Tdap/Td Vaccines (7 - Td or Tdap) [...] 07/21/20 17 Meningococcal Vaccine Completed 06/20/2021, 017 HIV Screening Completed 12/02/2024 Hepatitis C Screening [...] Date/Time Associated Diagnosis Comments COVID-19 ID NOW ([place]) Routine 07/29/2025 2:07 PM EDT INFLUENZA A [...] ([place]) (07/29/2025 2:07 PM EDT) IDNOW SERIAL# [id number] [facility] Influenza A Negative Negative [facility] Influenza B2 Negative Negative [facility] Influenza A B2 Note See Note [facility] Comment:The Layne ID NOW In [...] GENERAL ORDERABLES Final Result Performing Organization Address [facility] Co de Phone Number [facility] [address] [place] [phone] * Strep A Nucleic Acid (07/29/2025 2:07 PM EDT) IDNOW SERIAL# [id number] [facility] Strep A Nucleic Acid Negative Negative [facility] Comment:All test results mus t [...] GENERAL ORDERABLES Final Result Performing Organization Address [facility] Co de Phone Number [facility] [address] [place] [phone] * COVID-19 ID NOW (LAYNE) (07/29/2025 2:07 PM EDT) IDNOW SERIAL# [id number] [facility] COVID-19 TEST Negative Negative [facility] COVID-19 NOTE See Note [facility] Comment: Results are for the identification of SARS-CoV2 RNA. TheSARS-CoV2 RNA is generally detectable in respiratory samplesduring the acute phase of infection. Positive results areindicative of the presence of SARS-CoV-2 RNA; clinicalcorrelation with patient history and other diagnosticinformation is necessary to determine patient infectionstatus. Positive results do not rule out bacterial infectionor co- infection with other viruses.Testing facilities within the [facility] and itsterritories are required to report all [...] use by authorized laboratories.Testing performed on the [employer] mobile [employer] ID NOW utilizing NAAT. 07/29/2025 2:07 PM EDT 07/29/2025 2:11 PM EDT us Generic External Data Provider LAB MOLECULAR TAZ GNOSTICS ORDERABLES Final Result [facility] [address] [place] [address] [phone] * Chlamydia/N. Gonorrhoeae RNA, TMA, Urogenitial (12/02/2024 10:50 AM EST) CT PCR NOT DETECTED Not Detect. [facility] Comment:A not detected test result [...] psychologicalconsequences. NG PCR NOT DETECTED Not Detect. [facility] Comment:A not detected test result [...] AM EST 12/02/2024 11:42 AM EST Narrative [facility] - 12/02/2024 2:38 PM EST Urine us Velvet Sharp MD LAB MICROBIOLOGY - GENERAL OR DERABLES Final Result [facility] [address] [place] [phone] [phone] * Hepatitis C Antibody with Reflex to HCV, RNA, Quantitative, Real-Time PCR (12/02/2024 10:48 AM EST) Hepatitis C Antibody Nonreactive Nonreactive [facility] Comment:Antibodies to HCV no t detected; does not exclude early acuteHCV infection. Blood Venous blood specimen / Unknown 12/02/2024 10:48 AM EST 12/02/2024 11:44 AM EST Velvet Sharp MD LAB BLOOD ORDERABLES Final Re sult Performing Organization Address [facility]/ZIP Co de Phone Number [facility] [address] [place] [phone] * HIV-1/2 Antigen and Antibodies, Fourth Generation, with Reflexes (12/02/2024 10:48 AM EST) [facility] HIV AB/AG Nonreactive Nonreactive [facility] Comment:HIV-1 p24 Ag and/or HIV-1/HIV-2 Ab not detected.A test result that is nonreactive does not exclude thepossibility of exposure to or infection with HIV-1 and/orHIV-2. Nonreactive results in this assay for individualswith prior exposure to HIV-1 and/or HIV-2 may be due toantigen and antibody levels that are below the limit ofdetection of this assay.The Breadcrumbtracking HIV Ag/Ab Combo assay result andsupplemental assay results should be interpreted inconjunction with the patient's clinical presentation,history and other laboratory results. If the results areinconsistent with clinical evidence, additional testing issuggested to confirm the result. Blood Venous blood specimen / Unknown 12/02/2024 10:48 AM EST 12/02/2024 11:44 AM EST us Velvet Sharp MD LAB BLOOD ORDERABLES Final Re sult Performing Organization Address City/[facility]/ZIP Co de Phone Number [facility] [address] [place] [phone] [phone] from Last 3 Months or Most Recently Relevant to Health Maintenance Insurance [address] [place] [phone] [employer] [address] [place] [address] [place] ADULT DENTAL - [place]SN FULL (MEDICAID) [address] [place] [address] Care Teams Senior Bioinformatics Specialist Relationship Specialty Start Date End Date Velvet Sharp MD [address] [place] [phone] PCP - General Family Medicine 02/02/19
--- OUTSIDE RECORDS SUMMARY | 2025-09-14 18:53 | XMS_ITS | Encounter Summary ---
Author Organization [employer] Address 75 [facility] 7t [place] [address] Care Team Providers Care Mold Burner Name Role Phone Velvet Sharp MD Primary Care Provider [phone] Reason for Visit * Reason Onset Date Comments Appointment 06/26/2023 Encounter Details Date Type Department Care Team (Late st Contact Info) Description 06/26/2023 Telephone [facility] ADULT DENTAL [address] [place] [address] Clyde Robles Appointment Social History Tobacco Use [...] 8:00 AM EST Office Visit [facility] ADULT DENTAL [address] [place] [address] Francoise Cotto documented as of this encounter Visit Diagnoses Not on filedocumented in this encounter Care Teams Mold Burner Relationship Specialty Start Date End Date Velvet Sharp MD [address] [place] [address] PCP - General Family Medicine 02/02/19 documented as of this encounter
[2025-09-16 19:08] LABS: C. trachomatis RNA TMA NOT DETECTED (NOT DETECTED); N. gonorrhoeae RNA TMA NOT DETECTED (NOT DETECTED)
[2025-09-27 11:39] LABS: Trichomonas (NAAT) NOT DETECTED
== END 2025-09-14 16:32 | disposition home or self-care (01) ==
LOC: HO.HHCLNP 16:31
PROVIDERS: Visit Provider Advanced Practice Midwife
DX: Z12.4 Encounter for screening for malignant neoplasm of cervix (principal); Z20.2 Contact with and (suspected) exposure to infections with a predominantly sexual mode of transmission; Z11.51 Encounter for screening for human papillomavirus (HPV)
CPT/HCPCS: 87491; 87591; 87661; 88175

== ENCOUNTER 2025-09-25 14:12 | Outpatient (REF) | payer MEDICAID, OTHER, SELFPAY ==
--- NOTE | ~2025-09-25 | US_ITS ---
EXAMINATION: US PELVIS, COMPLETE CLINICAL INFORMATION: Pelvic and peritoneal pain COMPARISON: None TECHNIQUE: Transabdominal and transvaginal imaging was performed. FINDINGS: LMP: 12/11/2024 Uterus is anteverted , measuring 6.1 x 2.9 x 4.4 cm. No focal uterine lesion. Endometrial thickness 0.3 cm. Right ovary measures 2.5 x 1.6 x 2 cm. Volume 4.2 mL. Vascular flow is seen. Left ovary measures 3.3 x 2 x 2.2 cm. Volume 7.6 mL. Vascular flow is seen. No free fluid in the cul-de-sac. US/US pelvic and transvaginal IMPRESSION: Unremarkable pelvic ultrasound. Electronically signed by: Denny Estrada MD 09/26/2025 01:53 PM EST
--- OUTSIDE RECORDS SUMMARY | 2025-09-25 19:09 | XMS_ITS | Encounter Summary ---
Author Organization [employer] Address [address] [facility] [address] [place] [address] Care Team Providers Care Cruise Director Name Role Phone Velvet Sharp MD Primary Care Provider [phone] Encounter Details Date Type Department Care Team (Late st Contact Info) Description 07/21/2023 Orders Only [facility] MED & PEDS [address] [place], [place] [phone] Nisa Juarez LPN Social History Tobacco Use [...] [facility] [address] [place] [address] Francoise Cotto documented as of this encounter Visit Diagnoses Not on filedocumented in this encounter Care Teams Cruise Director Relationship Specialty Start Date End Date Velvet Sharp MD [address] [place] [address] PCP - General Family Medicine 02/02/19 documented as of this encounter
--- OUTSIDE RECORDS SUMMARY | 2025-09-25 19:09 | XMS_ITS | Encounter Summary ---
Author Organization [employer] Address [address] [facility] [address] [place] [address] Care Team Providers Care Magnetic Tape Composer Operator Name Role Phone Velvet Sharp MD Primary Care Provider [phone] Reason for Referral * Imaging (Routine) - Authorized Specialty Diagnoses / Procedures Referred By Contac t Referred To Contact Radiology Diagnoses Pelvic pain Procedures US Pelvis Transvaginal Brayan Robles MD [address] [place] [address] Phone: tel: fax: [address] [phone] Phone: tel: fax: Referral ID Status Reason Start Date Expiration Date V isits Requested Visits Authorized [id number] Authorized 06/20/2025 06/20/2026 1 1 * Imaging (Routine) - Authorized Specialty Diagnoses / Procedures Referred By Contac t Referred To Contact Radiology Diagnoses Pelvic pain Procedures Us Pelvis complete Brayan Robles MD [address] [place] [address] Phone: tel: fax: [address] [phone] Phone: tel: fax: Referral ID Status Reason Start Date Expiration Date V isits Requested Visits Authorized [id number] Authorized 06/20/2025 06/20/2026 1 1 Encounter Details Date Type Department Care Team ([facility] st Contact Info) Description 06/20/2025 Orders Only [facility] MED & PEDS [address] [place] [address] Brayan Robles MD [address] [place] [address] Pelvic pain (Primary Dx) Social History Tobacco [...] Upcoming Encounters Date Type Department Care Team ([facility] st Contact Info) Description 10/19/2025 8:00 AM EST Office Visit [facility] ADULT DENTAL [address] [place] [address] Francoise Cotto Scheduled Orders Name Type Priority [...] documented as of this encounter Care Teams Magnetic Tape Composer Operator Relationship Specialty Start Date End Date Velvet Sharp MD [address] [place] [address] PCP - General Family Medicine 02/02/19 documented as of this encounter
--- OUTSIDE RECORDS SUMMARY | 2025-09-25 19:09 | XMS_ITS | Encounter Summary ---
Author Organization [email or web address] Address [address] [facility] 7t [place] [address] Care Team Providers Care Cub Reporter Name Role Phone Velvet Sharp MD Primary Care Provider [phone] Reason for Visit * Reason Onset Date Comments Results 07/16/2023 Encounter Details Date Type Department Care Team ([facility] st Contact Info) Description 07/16/2023 Telephone [facility] MEDICINE [address] [place] [address] Velvet Sharp MD [address] [place] [phone] Results Social History Tobacco Use Types Packs/Day [...] RN checked for US pelvis results in [facility] and [facility].No results. Per pt, US done in [place]. Report not in system. Advised will f/u with Dinorah and return call to pt with plan. Pt agrees. * Telephone Encounter - Quita Marshall - 07/16/2023 3:34 PM EDT Tc from patient requesting lab test results. documented in this encounter Plan of Treatment Upcoming Encounters Date Type Department Care Team (Late st Contact Info) Description 10/19/2025 8:00 AM EST Office Visit [facility] ADULT DENTAL [address] [place] [address] Francoise Cotto documented as of this encounter Visit Diagnoses Not on filedocumented in this encounter Care Teams Cub Reporter Relationship Specialty Start Date End Date Velvet Sharp MD [address] [place] [address] PCP - General Family Medicine 02/02/19 documented as of this encounter
--- OUTSIDE RECORDS SUMMARY | 2025-09-25 19:09 | XMS_ITS | Encounter Summary ---
Author Organization [employer] Address [address] [facility] [address] [place] [address] Care Team Providers Care Financial Systems Director Name Role Phone Velvet Sharp MD Primary Care Provider [phone] Reason for Visit * Reason Onset Date Comments Appointment Request 03/27/2023 Encounter Details Date Type Department Care Team ([facility] st Contact Info) Description 03/27/[address] [facility] MEDICINE [address] [place] [address] Velvet Sharp MD [address] [place] [phone] Appointment Request Social History Tobacco Use Types [...] LVM. Unable to send text message via [employer] gwendolyn. * Telephone Encounter - Rasheeda Daigle [...] allergic reaction ) Please contact pt at [phone] documented in this encounter Plan of Treatment Upcoming Encounters Date Type Department Care Team ([facility] st Contact Info) Description 10/19/2025 8:00 AM EST Office Visit [facility] ADULT DENTAL [address] [place] [address] Francoise Cotto documented as of this encounter Visit Diagnoses Not on filedocumented in this encounter Care Teams Financial Systems Director Relationship Specialty Start Date End Date Velvet Sharp MD [address] [place] [address] PCP - General Family Medicine 02/02/19 documented as of this encounter
--- OUTSIDE RECORDS SUMMARY | 2025-09-25 19:09 | XMS_ITS | Encounter Summary ---
Author Organization [employer] Address [address] [facility] 7t [place] [address] Care Team Providers Care Director Channel Name Role Phone Velvet Sharp MD Primary Care Provider [phone] Encounter Details Date Type Department Care Team (Late st Contact Info) Description 09/14/2025 Orders Only [facility] MEDICINE [address] [place], [place] [phone] Dinorah Ocampo CN [address] [place] [address] Social History Tobacco Use Types Packs/Day Years [...] A Trouble relaxing 2 09/14/2025 2:25 PM Aggie Bo [place] Being so restless that it is [...] Description 10/19/2025 8:00 AM EST Office Visit [facility] ADULT DENTAL [address] [facility] [place] [facility] [place] [address] Francoise Cotto documented as of this encounter Procedures Procedure Name Priority Date/Time Associated Diagnosis Comments OTHER REF TEST - MISC Routine 09/14/2025 2:20 PM EST documented in this encounter Results * Other Reference Test - Misc (09/14/2025 2:20 PM EST) Other Ref Test Misc SEE NOTE [facility] Comment:SEE SCANNED REPORT I N EMR 09/14/2025 2:20 PM EST 09/15/2025 7:54 AM EST Narrative [facility] - 09/25/2025 4:11 PM EST Chlamydia/N. gonorrhoeae and T. vaginalis RNA, Qualitative, TMA REF [id number] us Dinorah TOLBERTM LAB BLOOD ORDERABLES Smiley l Result [facility] [address] [place] [address] [phone] documented in this encounter Visit Diagnoses Not on filedocumented in this encounter Additional Health Concerns Assessment Noted Time PHQ-9 Depression Total Score: 5 12/02/19 25 10:32 AM EST documented as of this encounter Care Teams Director Channel Relationship Specialty Start Date End Date Velvet Sharp MD [address] [place] [address] PCP - General Family Medicine 02/02/19 documented as of this encounter
--- OUTSIDE RECORDS SUMMARY | 2025-09-25 19:09 | XMS_ITS | Encounter Summary ---
Author Organization [employer] Address 75 [facility] 7t [place] [address] Care Team Providers Care Ice Cream Scooper Name Role Phone Velvet Sharp MD Primary Care Provider [phone] Reason for Visit * Reason Onset Date Comments Appointment 06/26/2023 Encounter Details Date Type Department Care Team (Late st Contact Info) Description 06/26/2023 Telephone [facility] ADULT DENTAL [address] [place] [address] Clyde Robles Appointment Social History Tobacco Use [...] Description 10/19/2025 8:00 AM EST Office Visit [facility] ADULT DENTAL [address] [place] [address] Francoise Cotto documented as of this encounter Visit Diagnoses Not on filedocumented in this encounter Care Teams Ice Cream Scooper Relationship Specialty Start Date End Date Velvet Sharp MD [address] [place] [address] PCP - General Family Medicine 02/02/19 documented as of this encounter
--- OUTSIDE RECORDS SUMMARY | 2025-09-25 19:09 | XMS_ITS | Encounter Summary ---
Author Organization [employer] Address 75 [facility] [address] [place] [address] Care Team Providers Care Scientific Advisor Name Role Phone Velvet Sharp MD Primary Care Provider [phone] Reason for Visit * Reason Onset Date Comments u/s order 06/20/2025 Encounter Details Date Type Department Care Team ([facility] Contact Info) Description 06/20/2025 Telephone [facility] CHC MED & PEDS [address] [place], [place] [phone] Velvet Sharp MD [address] [place] [address] u/s order Social History Tobacco Use Types [...] PM EDT Tc from Gina Torre at [facility] Radiology stating an order for an u/s of kidneys was placed and they need an u/s order for pelvic to be placed Contact Gina russell [phone] documented in this encounter Plan of Treatment Upcoming Encounters Date Type Department Care Team (Late st Contact Info) Description 10/19/2025 8:00 AM EST Office Visit [facility] ADULT DENTAL [address] [place] [address] Francoise Cotto documented as of this encounter Visit Diagnoses Not on filedocumented in this encounter Additional Health Concerns Assessment Noted Time PHQ-9 Depression Total Score: 5 12/02/19 25 10:32 AM EST documented as of this encounter Care Teams Scientific Advisor Relationship Specialty Start Date End Date Velvet Sharp MD [address] [place] [address] PCP - General Family Medicine 02/02/19 documented as of this encounter
--- OUTSIDE RECORDS SUMMARY | 2025-09-25 19:09 | XMS_ITS | Encounter Summary ---
Author Organization [employer] Address [address] [facility] 7t [place] [address] Care Team Providers Care Dialysis Technician Name Role Phone Velvet Sharp MD Primary Care Provider [phone] Reason for Visit * Reason Onset Date Comments Lab Orders 09/20/2025 Encounter Details Date Type Department Care Team ([facility] st Contact Info) Description 09/20/2025 Results Follow-Up [facility] MEDICINE [address] [place] [address] Dinorah Ocampo CNM [address] [place] [address] Pap Smear, STI testing add on (NG, CT, Trich) Social History Tobacco Use Types Packs/Day Years [...] encounter Miscellaneous Notes * Telephone Encounter - Dorinda Haines RN - 09/25/2025 1:29 PM EST Telephone call placed to [facility] Cytology lab. They stated very odd that trichomonastesting didn't come back with it but will have their staff member from [employer] look into it ([employer] ran it) and will call me back. Gave my direct ext for returned call. * Telephone Encounter - Dorinda Haines RN - 09/25/2025 1:24 PM EST ----- Message from Dinorah Ocampo sent at 09/25/2025 11:34 AM EST ----- One more pap with trichomonas testing not resulted, but Gonorrhea/Chlamydia resulted. Could you please followup with lab? Thanks! ----- Message ----- From: Netta, Lab Results In Sent: 09/16/2025 7:09 PM EST To: Dinorah Ocampo CNM * Result Encounter Note - Dinorah Ocampo CNM - 09/25/2025 11:34 AM EST One more pap with trichomonas testing not resulted, but Gonorrhea/Chlamydia resulted. Could you please followup with lab? Thanks! documented in this encounter Plan of Treatment Upcoming Encounters Date Type Department Care Team (Late st Contact Info) Description 10/19/2025 8:00 AM EST Office Visit [facility] ADULT DENTAL [address] [place] [address] Francoise Cotto documented as of this encounter Visit Diagnoses Not on filedocumented in this encounter Additional Health Concerns Assessment Noted Time PHQ-9 Depression Total Score: 5 12/02/19 25 10:32 AM EST documented as of this encounter Care Teams Dialysis Technician Relationship Specialty Start Date End Date Velvet Sharp MD [address] [place] [address] PCP - General Family Medicine 02/02/19 documented as of this encounter
--- OUTSIDE RECORDS SUMMARY | 2025-09-25 19:10 | XMS_ITS | Clinical Summary ---
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 Velvet Sharp MD Primary Care Provider [phone] Allergies No known active allergies Medications * [...] Encounters Date Type Department Care Team Description 09/20/2025 Results Follow-Up [address] [address] Dinorah Gould CNM Pap Smear, STI testing add on (NG, CT, Trich) 09/14/2025 1:45 PM EST Procedure Visit [address] [address] Dinorah Gould CNM Cervical cancer screening (Primary Dx); Encntr screen for infections w sexl mode of transmiss; Checking subdermal contraceptive 09/14/2025 Orders Only [address] [address] Dinorah Gould CNM 09/14/2025 Travel 09/13/[address] [address] Velvet Sharp MD chart prep 07/29/2025 Orders Only GENERIC EXTERNAL DATA DEPARTMENT Provider, Generic External Data 07/17/[address] [address] Dinorah Gould CNM chart prep from Last 3 Months Immunizations Immunization Administration [...] [facility] [address] [place] [address] Francoise Cotto Health Maintenance Due Date Last Done Comments Meningococcal B Vaccine (1 of 2 - Standard) 2020 COVID-19 Vaccine ( season) 2025 12/02/2024, 2021, 05/07/2021 Influenza Vaccine (#1) 2025 , 09/03/2023, 07/31/2022, Additional history exists Dental Oral Exam 10/19/2025 04/18/2025, 09/06/2024 Dental Prophylaxis 10/19/2025 04/18/2025, 1 11/06/2023, 02/08/2024, Additional history exists Alcohol/Substance Use Screening 12/02/2025 12/02/2024 Depression Screening 12/02/2025 12/02/2024, 12/02/19 Dental X-Ray: Bitewings 04/19/2026 04/18/20, 02/08/2024, 10/14/2022 Disability Screening 06/13/2026 06/13/2025 Tobacco Screening 06/14/2026 06/14/2025 Chlamydia and Gonorrhea Screening 09/14/2026 09/14/2025, 12/02/2024 Family Planning (PISQ) 09/14/2026 09/14/2025 SDOH Screening 09/14/2026 09/14/2025 DTaP/Tdap/Td Vaccines (7 - Td or Tdap) 07/21/2027 07/21/2017, 06/16/2017, 01/03/2010, Additional history exists Dental X-Ray: Full Mouth 04/19/2028 04/18/2025 Pap Smear 09/14/2028 09/14/2025 Zoster Vaccines (1 of 2) 2054 RSV [...] 07/21/2017 Hepatitis A Vaccines Completed 06/20/2021, 07/21/20 Meningococcal Vaccine Completed 06/20/2021, 017 HIV Screening [...] Procedure Name Priority Date/Time Associated Diagnosis Comments CHLAMYDIA/N. GONORRHOEAE AND T. VAGINALIS RNA, QUAL,TMA Routine 09/14/2025 2:20 PM EST Encntr screen for infections w sexl mode of transmiss PAP SMEAR Routine 09/14/2025 2:20 PM EST Cervical cancer screening OTHER REF TEST - MISC Routine 09/14/2025 2:20 PM EST COVID-19 ID NOW ([employer]) Routine 07/29/2025 2:07 PM EDT INFLUENZA A B2 ID NOW (LAYNE) Routine 07/29/2025 2:07 PM EDT STREP A NUCLEIC ACID Routine 07/29/2025 2:07 PM EDT PROPHYLAXIS - ADULT Routine 04/18/2025 8 :00 AM EDT INTRAORAL - COMPLETE SERIES OF RADIOGRAPHIC IMAGES Routine 04/18/2025 8:00 AM EDT PERIODIC ORAL EVALUATION - ESTABLISHED PATIENT Routine 04/18/2025 8:00 AM EDT HEPATITIS C AB W/REFL TO HCV RNA, QN, PCR Routine 12/02/2024 10:48 AM EST Encounter for immunization Annual physical exam HIV 1/2 ANTIGEN/ANTIBODY, FOURTH GENERATION W/RFL Routine 12/02/2024 10:48 AM EST Encounter for immunization Annual physical exam from Last 3 Months or Most Recently Relevant to Health Maintenance Results * STI testing add on (NG, CT, Trich) (09/14/2025 2:20 PM EST) Trichomonas (NAAT) TNP [facility] Comment:SEE 1113;C1020 FOR R ESULTS CTNG Ref Lab NOT DETECTED NOT DETECTED [facility] NG Ref Lab NOT DETECTED NOT DETECTED [facility] ThinPrep vial Cervix uteri structure / Unknown 09/14/2025 2:20 PM EST 09/15/2025 7:54 AM EST [facility] - 09/25/2025 4:11 PM EST Collection Date: [id number] by: EDDIE Tony: Cervix Dinorah Gould [facility] CYTOLOGY ORDERABLES F inal Result Performing Organization Address [facility]/ZIP Co de Phone Number [facility] [address] [place] [phone] * Other Reference Test - Misc (09/14/2025 2:20 PM EST) Other Ref Test Misc SEE NOTE [facility] Comment:SEE SCANNED REPORT I N EMR 09/14/2025 2:20 PM EST 09/15/2025 7:54 AM EST [facility] - 09/25/2025 4:11 PM EST Chlamydia/N. gonorrhoeae and T. vaginalis RNA, Qualitative, TMA REF [id number] Dinorah Gould [facility] BLOOD ORDERABLES Smiley l Result Performing Organization Address [facility] Co de Phone Number [facility] [address] [place] [phone] * Pap Smear (09/14/2025 2:20 PM EST) Swab Cervix uteri structure / Unknown 09/14/2025 2:20 PM EST 09/15/2025 7:54 AM EST [facility] - 09/20/2025 11:00 AM EST ----- ------- Name: Michael Bermeo Age/Sex: 20/F : 2005 Unit#: [id number] Attend Dr: DINORAH GOULD CNM Re09/14/25 Status: DEP [facility] Disch: ----- ------- SPEC : [id number] RECD: 09/15/25 STATUS: HEAVEN VELASCO NUM: [id number] LES: 09/14/[address] [facility] [address]: DINORAH GOULD CNM ENTERED: 09/15/25 SP TYPE: Pap Smr OT DR: ORDERED: Pap Smear Interpretation Satisfactory for evaluation. Negative for intraepithelial lesion or malignancy. No endocervical cells seen. Clinical Information LMP: Implantable control Previous PAP test: First Pap Other history: Cervical cancer screening Material Received ThinPrep-Vaginal/Cervical PAP Disclaimer As of August 24, 2024, the technical services to include automated prescreening performed by the ThinPrep Imaging System, PAP screening and HPV testing will be performed at [facility] (CLIA #[id number]), [address] [place] [address]. Testing for HPV was performed using the Rosanne AYDEN [id number] system. The presence of HPV in the female genital tract is associated with a number of diseases, including cervical carcinoma. The HPV DNA high risk pool tests for HPV 31, 33, 35, 39, 45, 51, 52, 56, 58, 59, 66 and 68. The testing for HPV 16 and 18 genotypes has also been performed. A positive result indicates detection of nucleic acid sequences from one or more subtypes, whereas a negative result indicates such sequences were not detected. All professional services are performed by [facility] ([address] [place] [id number]; ; CLIA #[id number]). The PAP Test is a screening procedure with the inherent possibility of both false negative and false positive results. Results should be interpreted in the context of historic and current clinical findings. Reliability of the PAP Test is enhanced by performing the test on a regular repetitive basis. ----- ------- Signed (signature on file) FER Salas (ASCP) 09/20/25 1100 ----- ------- END OF REPORT us Dinorah Gould [facility] CYTOLOGY ORDERABLES F inal Result [facility] [address] [place] [phone] * Influenza A B2 ID NOW (Layne) (07/29/2025 2:07 PM EDT) IDNOW SERIAL# [id number] [facility] Influenza A Negative Negative [facility] Influenza B2 Negative Negative [facility] Influenza A B2 Note See Note [facility] Comment:The Layne ID NOW In [...] GENERAL ORDERABLES Final Result Performing Organization Address [facility] de Phone Number [facility] [address] [place] [phone] * Strep A Nucleic Acid (07/29/2025 2:07 PM EDT) IDNOW SERIAL# [id number] [facility] Strep A Nucleic Acid Negative Negative [facility] Comment:All test results mus t [...] GENERAL ORDERABLES Final Result Performing Organization Address [facility] Co de Phone Number [facility] [address] [place] [phone] * COVID-19 ID NOW (LAYNE) (07/29/2025 2:07 PM EDT) IDNOW SERIAL# [id number] [facility] COVID-19 TEST Negative Negative [facility] COVID-19 NOTE See Note [facility] Comment: Results are for the identification of SARS-CoV2 RNA. TheSARS-CoV2 RNA is generally detectable in respiratory samplesduring the acute phase of infection. Positive results areindicative of the presence of SARS-CoV-2 RNA; clinicalcorrelation with patient history and other diagnosticinformation is necessary to determine patient infectionstatus. Positive results do not rule out bacterial infectionor co- infection with other viruses.Testing facilities within the [facility] and itsterritories are required to report all [...] use by authorized laboratories.Testing performed on the Cojoin ID NOW utilizing NAAT. 07/29/2025 2:07 PM EDT 07/29/2025 2:11 PM EDT us Generic External Data Provider LAB MOLECULAR TAZ [employer] ORDERABLES Final Result [facility] [address] [place] [phone] * Hepatitis C Antibody with Reflex to HCV, RNA, Quantitative, Real-Time PCR (12/02/2024 10:48 AM EST) Hepatitis C Antibody Nonreactive Nonreactive [facility] Comment:Antibodies to HCV no t detected; does not exclude early acuteHCV infection. Blood Venous blood specimen / Unknown 12/02/2024 10:48 AM EST 12/02/2024 11:44 AM EST us Velvet Sharp MD LAB BLOOD ORDERABLES Final Re sult Performing Organization Address City/[facility]/ZIP Co de Phone Number [facility] [address] [place] [phone] * HIV-1/2 Antigen and Antibodies, Fourth Generation, with Reflexes (12/02/2024 10:48 AM EST) HIV AB/AG Nonreactive Nonreactive [facility] Comment:HIV-1 p24 Ag and/or HIV-1/HIV-2 Ab not detected.A test result that is nonreactive does not exclude thepossibility of exposure to or infection with HIV-1 and/orHIV-2. Nonreactive results in this assay for individualswith prior exposure to HIV-1 and/or HIV-2 may be due toantigen and antibody levels that are below the limit ofdetection of this assay.The [employer] HIV Ag/Ab Combo assay result andsupplemental assay results should be interpreted inconjunction with the patient's clinical presentation,history and other laboratory results. If the results areinconsistent with clinical evidence, additional testing issuggested to confirm the result. Blood Venous blood specimen / Unknown 12/02/2024 10:48 AM EST 12/02/2024 11:44 AM EST us Velvet Sharp MD LAB BLOOD ORDERABLES Final Re sult Performing Organization Address [facility]/ZIP Co de Phone Number [facility] [address] [place] [phone] from Last 3 Months or Most Recently Relevant to Health Maintenance Insurance [address] [place] [id number] [address] [place] [address] [place] [phone] DENTAL-[facility] MEDICAID LIMITED ADULT DENTAL - [facility]SN FULL (MEDICAID) [address] [place] [address] 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
== END 2025-09-25 14:13 | disposition home or self-care (01) ==
LOC: HO.US 14:12
PROVIDERS: PCP Pediatrics; Visit Provider Internal Medicine
DX: R10.20 Pelvic and perineal pain unspecified side (principal); R31.9 Hematuria, unspecified
CPT/HCPCS: 76830; 76856

== ENCOUNTER → 2025-09-25 14:16 | Outpatient (BNV) | payer MEDICAID, SELFPAY | PROVIDERS: PCP Pediatrics; Visit Provider Radiology Diagnostic Ultrasound | DX: R10.20 Pelvic and perineal pain unspecified side (principal) | CPT/HCPCS: 76830; 76856 ==

== ENCOUNTER 2025-10-26 07:09 | Emergency (ER) | payer MEDICAID, OTHER, SELFPAY ==
[2025-10-26 07:12] VITALS: BP 130/85; PULSE 88; RESP 18; TEMP 36.8; O2SAT 99; BMI 29.7
--- NOTE | 2025-10-26 07:21 | ECG_ITS ---
Test Reason : SYNCOPY Blood Pressure : */* mmHG Vent. Rate : 85 BPM Atrial Rate : 85 BPM P-R Int : 132 ms QRS Dur : 70 ms QT Int : 360 ms P-R-T Axes : 18 15 4 degrees QTcB Int : 428 ms Normal sinus rhythm Minimal voltage criteria for LVH, may be normal variant ( R in aVL ) Cannot rule out Anterior infarct (cited on or before 29-Jul-2025) Abnormal ECG When compared with ECG of 29-Jul-2025 13:52, No significant change was found Referred By: Generic ED Physician Electronically Signed By: PIETER DELGADO MD
--- NOTE | 2025-10-26 07:49 | ED_ITS ---
HPI - Dizziness General Chief Complaint: Syncope Stated Complaint: abd pain Time Seen by Provider: 10/26/25 07:45 History of Present Illness ED Provider: Elli Evans NP HPI Narrative: 20-year-old female who denies any significant medical history presents to the ED for evaluation reporting that she woke this morning with generalized abdominal pain, generalized myalgias, subjective fever and chills. Reports that she was not feeling well this morning, she woke up to make tea, and ambulated back to her bed, but thought maybe she passed out because she woke up in her bed. Reports she is unsure if she fell or not. Denies any headache, dizziness. No chest pain or pressure, shortness of breath. Upon arrival to the ED, she is afebrile, without hypoxia, without tachycardia. Related Data Previous Rx's ?Medication ?Instructions ?Recorded amoxicillin 500 mg-potassium 1 tab PO BID #14 tabs 01/22 clavulanate 125 mg tablet (Augmentin) ketorolac 10 mg tablet 10 mg PO TID PRN pain #10 ta bs 04/04/23 acetaminophen 325 mg tablet 650 mg (2 x 325 mg) PO Q4H PRN 07/29/25 (Tylenol) fever or pain #30 tabs ibuprofen 600 mg tablet 600 mg PO Q8H PRN fever or p ain 07/29/25 #20 tabs Allergies Allergy/AdvReac Type Severity Reaction Status Date / Time No Known Allergies (No Known Allergy Verified 10/26/25 07:16 Allergies*) Review of Systems Review of Systems: ROS is otherwise negative unless mentioned in HPI. [facility] Past Medical History Medical History Asthma Social History Social History Alcohol intake: never Patient Tobacco Use Status: Never used Tobacco Advance Directives: No Advance Directives Information Provided: No Do you have a plan to hurt others: No Plan Physical Exam Exam: Exam: Nursing notes and vital signs reviewed. Constitutional: Well-appearing, NAD. Alert. Oriented X3. Eyes: EOMI. ENT: Pharynx normal. Neck: Normal inspection. Neck supple. CVS: Normal heart rate and rhythm. Pulses normal. Respiratory: No respiratory distress. Breath sounds normal. Abdomen: Soft, nontender, nondistended. No CVA tenderness bilaterally. Skin: Skin warm and dry. Normal skin color. Extremities: No lower extremity edema. Neuro: Oriented X 3. No motor deficit. Vital Signs: Vital Signs: Last Vital Signs Temp 98.3 F 10/26/25 07:12 Pulse 88 10/26/25 07:12 Resp 18 10/26/25 07:12 BP 130/85 10/26/25 07:12 Pulse Ox 99 10/26/25 07:12 O2 Del Method Room Air 10/26/25 07:12 BMI result Body Mass Index 29.7 Medical Decision Making Medical Decision Making [facility] Narrative: Upon my initial assessment, she does overall appear well. She answers questions appropriately. What she describes to be sounds like she did not feel well, she woke up to make herself a cup of tea, and then went back to her bed and fell asleep. It does not sound like she passed out. There was no traumatic injury or trauma. She does complain of viral illness like symptoms, we will obtain a viral swab while in the ED. She also complains of some urinary discomfort and frequency, we will also obtain a urinalysis. Her EKG is nonischemic. This was obtained as she was concerned she may have passed out. 9:13 am-- Urinalysis does not show any signs of infection at this time. Viral panel was negative for COVID, flu, RSV. She likely has a common cold or other viral illness. At this time, she appears well, is vitally stable. There is no indication for any additional workup. We will proceed with discharge plan. Patient expressed understanding. Differential Diagnosis Differential Diagnoses: The differential diagnosis associated with the presentation includes , cystitis, overall illness Admission/Observation Consideration of admission/observation: Escalation of care including admission/observation considered (Not indicated) Lab Data [facility] Lab Attestation statement: I reviewed the patient's lab results. (Reassuring, negative UA, negative viral panel.) Labs: Lab Results 10/26/25 Range/Units 08:11 Urine Color Yellow Urine Appearance Clear Urine pH 6.5 (5.0-9.0) Ur Specific [place] 1.025 (1.005-1.025) Urine Protein Negative (Neg-Trace) mg/dL Urine Glucose (UA) Negative (Negative) mg/dL Urine Ketones Negative (Negative) mg/dL Urine Blood Trace H (Negative) Urine Nitrite Negative (Negative) Ur Leukocyte Esterase Negative (Negative) Urine RBC 3-5 H (0-2) /HPF Urine WBC 0-5 (0-5) /HPF Ur Squamous Epith Cells 0-2 (0-2) /HPF Urine Bacteria None Seen (None Seen) Hyaline Casts 0-2 (0-2) /LPF Urine Test NEGATIVE (NEGATIVE) Influenza Type A (PCR) NEGATIVE (Negative) Influenza Type B (PCR) NEGATIVE (Negative) RSV RNA Qual (PCR) NEGATIVE (Negative) SARS-CoV-2 RNA (RT-PCR) NEGATIVE (Negative) Independent Interpretation I performed an independent interpretation of an: EKG Interpretation: Rate: 85 Rhythm: NSR Herod: Normal P waves. Normal VERN. Normal QRS complex. ST T wave : no dep, elev qTC: 428 prior studies:similar The study has been interpreted contemporaneously by me. Independent Historian Clinical information obtained from an independent historian. History obtained from or confirmed by: Friend External Record Review External record reviewed: Other (prior ER visits) Social Determinants Patient?s care significantly limited by Social Determinants of Health including: Problems related to primary support group Discharge Plan Discharge Clinical Impression: Viral illness Patient Disposition: Home, Self-Care Instructions: Viral Syndrome (ED) Additional Instructions: As we discussed, your viral panel was negative for COVID, flu, RSV. The urine sample shows no signs of infection. You likely have a viral illness. Please follow up with your primary care provider within the next 1 week. If any time you develop any new, worsening complaints, return back to the ED for additional assessment. Prescriptions: No Action ketorolac 10 mg tablet 10 mg PO TID PRN (Reason: pain) Qty: 10 0RF Rx Instructions: Do not use his medications with any NSAIDs, only Tylenol if needed amoxicillin-pot clavulanate [Augmentin] 500-125 mg tablet 1 tab PO BID Qty: 14 0RF ibuprofen 600 mg tablet 600 mg PO Q8H PRN (Reason: fever or pain) Qty: 20 0RF acetaminophen [Tylenol] 325 mg tablet 650 mg PO Q4H PRN (Reason: fever or pain) Qty: 30 0RF Referrals: Velvet Sharp MD [Primary Care Provider, Medical] Print Language: Mosotho
[2025-10-26 08:19] LABS: Appearance Urine Clear; Glucose Urine UA Negative (Negative); PH 6.5 (5.0-9.0); Specific Gravity - Urine 1.025 (1.005-1.025); UMIC TRIGGER UACC YES
[2025-10-26 08:20] LABS: UPreg QC Valid YES
[2025-10-26 09:00] LABS: Resp Syncy Virus RNA Qual PCR NEGATIVE (Negative); SARS COV2 PCR INHOUSE NEGATIVE (Negative)
[2025-10-26 09:27] VITALS: BP 134/89; PULSE 87; RESP 18; TEMP 36.6; O2SAT 99
[2025-10-26 09:38] VITALS: BP 134/89; PULSE 87; RESP 18; TEMP 36.6; O2SAT 99
== END 2025-10-26 09:39 | disposition home or self-care (01) ==
PROVIDERS: Nurse Practitioner; Emergency Provider Emergency Medicine; PCP Pediatrics
DX: B34.9 Viral infection, unspecified (principal); R55 Syncope and collapse; M79.10 Myalgia, unspecified site; R50.9 Fever, unspecified; Z03.818 Encounter for observation for suspected exposure to other biological agents ruled out
CPT/HCPCS: 81001; 81025; 87637; 93005; 99284

== ENCOUNTER → 2025-10-26 07:21 | Outpatient (BNV) | payer MEDICAID, SELFPAY | PROVIDERS: Emergency Provider Emergency Medicine; PCP Pediatrics; Visit Provider Internal Medicine Cardiovascular Disease | DX: R94.31 Abnormal electrocardiogram [ECG] [EKG] (principal); R55 Syncope and collapse | CPT/HCPCS: 93010 ==